=== PATIENT | male | born 1930 | race Caucasian/White ===

== ENCOUNTER 2016-12-15 04:58 | Inpatient (IN) | payer MEDICARE, OTHER ==
[~2016-12-15] VITALS: Ht 185.4 cm; Wt 96.1 kg
[~2016-12-15 04:58] MED LIST: ACET-66 PO; APIX2.5T PO; BISA5TAB12 PO; DILT60SR PO; DSS100 PO; FINA5TAB41 PO; FURO20 PO; INSNOV SQ; LEVO88TA4 PO; MOM30 PO; MONT10TA21 PO; PANT40TA25 PO; PIPE3.377 IV; PRED20 PO; SENN8.6T90 PO; TAMS0.4C32 PO; VALS160T2 PO; VANC1I IV; ZOLP5 PO
[2016-12-15 05:11] LABS: GLUCOSE,POINT OF CARE 124 MG/DL (70-110)
[2016-12-15] MEDS ORDERED: RAPID SEQUENCE KIT [RSI] 1 EACH KIT ONE ×2 (05:31)
[2016-12-15] MEDS ORDERED: SUCCINYLCHOLINE CHLORIDE 20 MG/ML 10 ML VIAL ONE (05:34)
[2016-12-15 05:58] LABS: EOSINOPHILS # (AUTO) 0.05 K/uL (0.00-0.70); EOSINOPHILS % (AUTO) 0.29 % (1.0-6.0); HEMATOCRIT 32.6 % (41-53); HEMOGLOBIN 10.5 g/dL (13.5-17.5); LYMPHOCYTES # (AUTO) 0.8 K/uL (1.0-4.8); LYMPHOCYTES % (AUTO) 5.3 % (22.0-44.0); MEAN CORPUSCULAR HEMOGLOBIN 31.7 pg (26.0-34.0); MEAN CORPUSCULAR HGB CONC 32.1 G/dL (31.0-37.0); MEAN CORPUSCULAR VOLUME 99 fL (80-100); MONOCYTES # (AUTO) 1.9 K/uL (0.1-1.0); NEUTROPHILS # (AUTO) 12.9 K/uL (1.8-7.7); NEUTROPHILS % (AUTO) 82.3 % (40.0-70.0); PLATELET COUNT (AUTO) 123 K/uL (150-450); RED CELL DISTRIBUTION WIDTH 13.8 % (11.5-14.5); WHITE BLOOD COUNT (AUTO) 15.6 K/uL (4.5-11.0)
[2016-12-15 06:11] LABS: INR 1.1 (0.9-1.1); PROTHROMBIN TIME 12.1 SEC (9.4-11.6)
[2016-12-15 06:14] LABS: ABG A-A DIFF O2 355.3 mmHg (10-20.0); ABG HCO3 34.7 mmol/L (22.0-26.0); ABG OXYHEMOGLOBIN 98.1 % (94.0-100.0); ABG PCO2 45 mmHg (35-45); ABG PH 7.512 (7.35-7.450); ALLEN TEST, BLOOD GAS POS; TEMPERATURE, FAHRENHEIT, BG 98.6 FAHREN (96.0-98.6)
[2016-12-15 06:14] LABS: ALANINE AMINOTRANSFERASE 21 U/L (12-78); ANION GAP -1 mmol/L (8-16); ASPARTATE AMINOTRANSFERASE 11 U/L (15-37); BILIRUBIN,TOTAL 0.3 mg/dL (0.1-1.0); CALCIUM, TOTAL 8.5 mg/dL (8.8-10.5); CHLORIDE 101 mmol/L (98-107); CREATINE KINASE, TOTAL 7 U/L (39-308); CREATININE 1.11 mg/dL (0.60-1.30); GLOMERULAR FILTR. RATE CALC > 60 mL/min (>60); SODIUM SERUM 143 mmol/L (136-145); TOTAL PROTEIN, SERUM 5.6 g/dL (6.4-8.2); UREA NITROGEN, BLOOD 18 mg/dL (7-18)
[2016-12-15] MEDS ORDERED: VECURONIUM BROMIDE 10 MG/VIAL IVP ONE ×2 (06:15→12:00)
[2016-12-15] MEDS ORDERED: PROPOFOL 1000 MG/ISO-OSM 100 ML IV PRN (06:15)
[2016-12-15] MEDS ORDERED: ETOMIDATE 2 MG/ML 10 ML VIAL IVP ONE ×2 (06:15→12:00)
[2016-12-15 06:17] LABS: CARBON DIOXIDE 43 mmol/L (22-29)
[2016-12-15 06:20] LABS: B-TYPE NATRIURETIC PEPTIDE 643 pg/mL (0-100)
[2016-12-15] MEDS ORDERED: ALBUMIN HUMAN 25%-25GM/100ML 100 ML IV ONE (06:45)
[2016-12-15] MEDS ORDERED: FUROSEMIDE 40 MG/4 ML VIAL IVP ONE (06:45)
[2016-12-15] MEDS ORDERED: POTASSIUM CHL 40 MEQ/D5-0.45NS 1,000 ML IV ONE (06:45)
[2016-12-15] MEDS ORDERED: ACETAMINOPHEN 325 MG TABLET PO PRN (06:45)
[2016-12-15] MEDS ORDERED: 0.9% SODIUM CHLORIDE 10 ML SYRINGE IVP PRN (06:45)
[2016-12-15 06:47] LABS: APPEARANCE,URINE CLOUDY (CLEAR); GLUCOSE, URINE (UA) NEGATIVE (NEGATIVE); KETONES,URINE NEGATIVE (NEGATIVE); LEUKOCYTE ESTERASE ,URINE NEGATIVE (NEGATIVE); OCCULT BLOOD,URINE MODERATE (NEGATIVE); PH,URINE 5.5 (5.0-8.0); PROTEIN,URINE SEE CONFIRM (NEGATIVE)
[2016-12-15 07:04] LABS: ADD UA MICROSCOPIC YES
[2016-12-15 07:06] LABS: SULFOSALICYLIC ACID,URINE 3+ (Negative)
[2016-12-15 07:07] LABS: WBC,URINE 0-2 /HPF (0-5)
[2016-12-15 07:09] LABS: SQUAMOUS EPITHELIAL CELL,UR Few /LPF (None Seen); URIC ACID CRYSTALS,URINE Few /LPF (None Seen)
[2016-12-15] MEDS ORDERED: HEPARIN SODIUM,PORCINE 100 UNITS/ML 5 ML VIAL IVP ONE (07:15)
[2016-12-15] MEDS ORDERED: BISACODYL 10 MG RECTAL RECTAL SUPPOSITORY PR PRN (09:15)
[2016-12-15] MEDS ORDERED: ACETAMINOPHEN 325 MG TABLET NG PRN (09:15)
[2016-12-15] MEDS ORDERED: MAGNESIUM HYDROXIDE SUSPENSION 30 ML UDCUP NG PRN (09:15)
[2016-12-15] MEDS: LEVOFLOXACIN 500 MG/D5% WATER 100 ML IV SCH (09:41)
[2016-12-15] MEDS ORDERED: VANCOMYCIN HCL 1 GM/D5% WATER 200 ML IV ONE (11:00)
[2016-12-15] MEDS: MethylPREDNISolone SOD SUCC 125 MG/2 ML VIAL IVP SCH ×2 (11:52→18:16)
[2016-12-15] MEDS ORDERED: POTASSIUM CHLORIDE 20 MEQ ER TABLET PO PRN (12:45)
[2016-12-15] MEDS ORDERED: HEPARIN SODIUM,PORCINE 5,000 UNITS/ML VIAL SQ SCH (16:00)
[2016-12-15] MEDS ORDERED: PROPOFOL 1000 MG/ISO-OSM 100 ML IV ONE (17:39)
[2016-12-15 20:00] VITALS: BP 145/78
[2016-12-15 20:39] LABS: CREATINE KINASE, TOTAL 8 U/L (39-308)
[2016-12-15] MEDS: POTASSIUM CHL 10 MEQ/WATER 50 ML IV PRN ×4 (20:52→22:48)
[2016-12-15] MEDS: APIXABAN 2.5 MG TABLET NG SCH (20:52)
[2016-12-15] MEDS: DOCUSATE SODIUM 100 MG CAPSULE NG SCH (20:52)
[2016-12-15] MEDS ORDERED: SODIUM CHLORIDE 0.9% 250 ML IV ONE (21:24)
[2016-12-16] VITALS: BP 153/70
[2016-12-16] MEDS: MethylPREDNISolone SOD SUCC 125 MG/2 ML VIAL IVP SCH ×4 (00:45→17:56)
[2016-12-16 04:00] VITALS: BP 116/53
[2016-12-16] MEDS: PROPOFOL 1000 MG/ISO-OSM 100 ML IV PRN ×4 (04:44→17:57)
[2016-12-16 04:46] LABS: CREATINE KINASE, TOTAL 16 U/L (39-308)
[2016-12-16 04:49] LABS: ALBUMIN 2.3 g/dL (3.4-5.0); BILIRUBIN,TOTAL 0.6 mg/dL (0.1-1.0); CALCIUM, TOTAL 8.6 mg/dL (8.8-10.5); CREATININE 1.18 mg/dL (0.60-1.30); EOSINOPHILS % (AUTO) 0 % (1.0-6.0); HEMATOCRIT 30.6 % (41-53); HEMOGLOBIN 9.7 g/dL (13.5-17.5); LYMPHOCYTES # (AUTO) 0.6 K/uL (1.0-4.8); LYMPHOCYTES % (AUTO) 5.7 % (22.0-44.0); MAGNESIUM 1.6 mg/dL (1.80-2.40); MEAN CORPUSCULAR HEMOGLOBIN 31.1 pg (26.0-34.0); MEAN CORPUSCULAR HGB CONC 31.8 G/dL (31.0-37.0); MEAN CORPUSCULAR VOLUME 98 fL (80-100); MONOCYTES # (AUTO) 0.6 K/uL (0.1-1.0); MONOCYTES % (AUTO) 5.7 % (2.0-9.0); NEUTROPHILS # (AUTO) 9.1 K/uL (1.8-7.7); PHOSPHORUS 1.8 mg/dL (2.5-4.9); PLATELET COUNT (AUTO) 118 K/uL (150-450); POTASSIUM 3.5 mmol/L (3.5-5.1); RED BLOOD CELL COUNT(AUTO) 3.13 MIL/uL (4.50-5.90); RED CELL DISTRIBUTION WIDTH 13.4 % (11.5-14.5); TOTAL PROTEIN, SERUM 5.7 g/dL (6.4-8.2); WHITE BLOOD COUNT (AUTO) 10.2 K/uL (4.5-11.0)
[2016-12-16 04:50] LABS: NEUTROPHILS % (AUTO) 88.6 % (40.0-70.0)
[2016-12-16] MEDS ORDERED: SODIUM CHLORIDE 0.9% 250 ML IV ONE ×2 (05:47→08:26)
[2016-12-16] MEDS: POTASSIUM CHL 10 MEQ/WATER 50 ML IV PRN ×6 (07:06→14:21)
[2016-12-16 07:46] LABS: ABG A-A DIFF O2 126.6 mmHg (10-20.0); ABG BASE EXCESS 11.4 mmol/L (-2.0-3.0); ABG HCO3 34.9 mmol/L (22.0-26.0); ABG OXYHEMOGLOBIN 97.6 % (94.0-100.0); ABG PCO2 28 mmHg (35-45)
[2016-12-16 07:48] LABS: ABG PH 7.678 (7.35-7.450); ALLEN TEST, BLOOD GAS Positive
[2016-12-16 08:00] VITALS: BP 91/45
[2016-12-16] MEDS: VANCOMYCIN HCL 1 GM/D5% WATER 200 ML IV SCH ×2 (08:34→17:56)
[2016-12-16] MEDS: APIXABAN 2.5 MG TABLET NG SCH ×2 (08:35→20:58)
[2016-12-16] MEDS: DOCUSATE SODIUM 100 MG CAPSULE NG SCH ×2 (08:35→20:58)
[2016-12-16] MEDS: PANTOPRAZOLE SODIUM 40 MG/VIAL IVP SCH (08:35)
[2016-12-16] MEDS: LEVOFLOXACIN 500 MG/D5% WATER 100 ML IV SCH (10:57)
[2016-12-16 11:51] LABS: CREATINE KINASE, TOTAL 11 U/L (39-308); POTASSIUM 3.1 mmol/L (3.5-5.1)
[2016-12-16 12:00] VITALS: BP 104/50
[2016-12-16 15:02] LABS: ABG A-A DIFF O2 71.2 mmHg (10-20.0); ABG BASE EXCESS 10.3 mmol/L (-2.0-3.0); ABG HCO3 33.7 mmol/L (22.0-26.0); ABG OXYHEMOGLOBIN 98.5 % (94.0-100.0); ABG PCO2 34 mmHg (35-45); TEMPERATURE, FAHRENHEIT, BG 98.6 FAHREN (96.0-98.6)
[2016-12-16 15:03] LABS: ABG PH 7.591 (7.35-7.450)
[2016-12-16 15:04] LABS: ALLEN TEST, BLOOD GAS Positive
[2016-12-16 16:00] VITALS: BP 133/54
[2016-12-16 20:00] VITALS: BP 86/48
[2016-12-17] VITALS (8 sets, daily range): BP systolic 108–147; BP diastolic 44–125
[2016-12-17] MEDS: MethylPREDNISolone SOD SUCC 125 MG/2 ML VIAL IVP SCH ×5 (00:53→23:58)
[2016-12-17] MEDS: PROPOFOL 1000 MG/ISO-OSM 100 ML IV PRN ×2 (02:21→08:00)
[2016-12-17] MEDS: VANCOMYCIN HCL 1 GM/D5% WATER 200 ML IV SCH ×2 (05:30→18:13)
[2016-12-17 05:39] LABS: ANION GAP 1 mmol/L (8-16); CALCIUM, TOTAL 8.4 mg/dL (8.8-10.5); CARBON DIOXIDE 35 mmol/L (22-29); CHLORIDE 100 mmol/L (98-107); CREATININE 1.03 mg/dL (0.60-1.30); GLOMERULAR FILTR. RATE CALC > 60 mL/min (>60); POTASSIUM 3.9 mmol/L (3.5-5.1); SODIUM SERUM 136 mmol/L (136-145); THYROID STIMULATING HORMONE 0.66 uIU/mL (0.36-3.74); UREA NITROGEN, BLOOD 28 mg/dL (7-18)
[2016-12-17 07:11] LABS: EOSINOPHILS % (AUTO) 0 % (1.0-6.0); HEMATOCRIT 27.4 % (41-53); HEMOGLOBIN 8.9 g/dL (13.5-17.5); LYMPHOCYTES # (AUTO) 0.5 K/uL (1.0-4.8); LYMPHOCYTES % (AUTO) 4.7 % (22.0-44.0); MEAN CORPUSCULAR HEMOGLOBIN 31.1 pg (26.0-34.0); MEAN CORPUSCULAR HGB CONC 32.4 G/dL (31.0-37.0); MEAN CORPUSCULAR VOLUME 96 fL (80-100); MONOCYTES # (AUTO) 0.5 K/uL (0.1-1.0); MONOCYTES % (AUTO) 4.5 % (2.0-9.0); NEUTROPHILS # (AUTO) 10.6 K/uL (1.8-7.7); PLATELET COUNT (AUTO) 118 K/uL (150-450); RED BLOOD CELL COUNT(AUTO) 2.85 MIL/uL (4.50-5.90); RED CELL DISTRIBUTION WIDTH 13.7 % (11.5-14.5); WHITE BLOOD COUNT (AUTO) 11.7 K/uL (4.5-11.0)
[2016-12-17 07:16] LABS: NEUTROPHILS % (AUTO) 90.8 % (40.0-70.0)
[2016-12-17] MEDS: PANTOPRAZOLE SODIUM 40 MG/VIAL IVP SCH (07:59)
[2016-12-17] MEDS: DOCUSATE SODIUM 100 MG CAPSULE NG SCH ×2 (08:00→20:48)
[2016-12-17] MEDS: APIXABAN 2.5 MG TABLET NG SCH ×2 (08:00→20:48)
[2016-12-17] MEDS: MULTIVITAMINS WITH MINERALS, THERAPEUTIC 15 ML UDCUP NG SCH (08:10)
[2016-12-17 09:00] LABS: ABG BASE EXCESS 8.8 mmol/L (-2.0-3.0); ABG HCO3 31.9 mmol/L (22.0-26.0); ABG OXYHEMOGLOBIN 97.4 % (94.0-100.0); ABG PCO2 41 mmHg (35-45); ABG PH 7.506 (7.35-7.450); TEMPERATURE, FAHRENHEIT, BG 98.6 FAHREN (96.0-98.6)
[2016-12-17 09:06] LABS: ALLEN TEST, BLOOD GAS Positive
[2016-12-17] MEDS ORDERED: SODIUM CHLORIDE 0.9% 250 ML IV ONE ×2 (09:47→20:45)
[2016-12-17] MEDS: LEVOFLOXACIN 500 MG/D5% WATER 100 ML IV SCH (09:47)
[2016-12-17] MEDS: MORPHINE SULFATE 2 MG/ML SYRINGE IVP PRN (14:10)
[2016-12-17] MEDS: LORazepam 2 MG/ML VIAL IVP PRN (20:50)
[2016-12-18] VITALS: BP 126/56
[2016-12-18 04:00] VITALS: BP 116/65
[2016-12-18] MEDS: VANCOMYCIN HCL 1 GM/D5% WATER 200 ML IV SCH (06:21)
[2016-12-18] MEDS: MethylPREDNISolone SOD SUCC 125 MG/2 ML VIAL IVP SCH ×3 (06:21→17:33)
[2016-12-18 06:44] LABS: EOSINOPHILS % (AUTO) 0 % (1.0-6.0); HEMATOCRIT 27.6 % (41-53); HEMOGLOBIN 8.8 g/dL (13.5-17.5); LYMPHOCYTES # (AUTO) 0.4 K/uL (1.0-4.8); LYMPHOCYTES % (AUTO) 3.9 % (22.0-44.0); MEAN CORPUSCULAR HEMOGLOBIN 30.8 pg (26.0-34.0); MEAN CORPUSCULAR HGB CONC 31.8 G/dL (31.0-37.0); MEAN CORPUSCULAR VOLUME 97 fL (80-100); MONOCYTES # (AUTO) 0.5 K/uL (0.1-1.0); MONOCYTES % (AUTO) 4.4 % (2.0-9.0); NEUTROPHILS # (AUTO) 10.1 K/uL (1.8-7.7); PLATELET COUNT (AUTO) 108 K/uL (150-450); RED BLOOD CELL COUNT(AUTO) 2.85 MIL/uL (4.50-5.90); RED CELL DISTRIBUTION WIDTH 13.5 % (11.5-14.5)
[2016-12-18 07:01] LABS: NEUTROPHILS % (AUTO) 91.7 % (40.0-70.0)
[2016-12-18 07:03] LABS: ANION GAP 3 mmol/L (8-16); CALCIUM, TOTAL 8.2 mg/dL (8.8-10.5); CARBON DIOXIDE 34 mmol/L (22-29); CHLORIDE 99 mmol/L (98-107); CREATININE 1.09 mg/dL (0.60-1.30); GLOMERULAR FILTR. RATE CALC > 60 mL/min (>60); POTASSIUM 4.1 mmol/L (3.5-5.1); SODIUM SERUM 136 mmol/L (136-145); UREA NITROGEN, BLOOD 33 mg/dL (7-18)
[2016-12-18 08:00] VITALS: BP 135/54
[2016-12-18] MEDS: MULTIVITAMINS WITH MINERALS, THERAPEUTIC 15 ML UDCUP NG SCH (09:00)
[2016-12-18 09:57] LABS: ABG A-A DIFF O2 70.4 mmHg (10-20.0); ABG BASE EXCESS 6.3 mmol/L (-2.0-3.0); ABG HCO3 29.9 mmol/L (22.0-26.0); ABG PCO2 39 mmHg (35-45); TEMPERATURE, FAHRENHEIT, BG 98.9 FAHREN (96.0-98.6)
[2016-12-18 09:58] LABS: ALLEN TEST, BLOOD GAS POSITIVE
[2016-12-18] MEDS: PANTOPRAZOLE SODIUM 40 MG/VIAL IVP SCH (09:59)
[2016-12-18] MEDS: LEVOFLOXACIN 500 MG/D5% WATER 100 ML IV SCH (10:00)
[2016-12-18] MEDS: APIXABAN 2.5 MG TABLET NG SCH ×2 (10:00→21:27)
[2016-12-18] MEDS: LORazepam 2 MG/ML VIAL IVP PRN (10:00)
[2016-12-18] MEDS: DOCUSATE SODIUM 100 MG CAPSULE NG SCH ×2 (10:00→21:27)
[2016-12-18 12:00] VITALS: BP 132/49
[2016-12-18] MEDS ORDERED: VANCOMYCIN HCL 1 GM/D5% WATER 200 ML IV PRN (12:30)
[2016-12-18 16:00] VITALS: BP 150/71
[2016-12-18 20:00] VITALS: BP 108/47
[2016-12-19] VITALS (8 sets, daily range): BP systolic 111–159; BP diastolic 45–70
[2016-12-19] MEDS: MethylPREDNISolone SOD SUCC 125 MG/2 ML VIAL IVP SCH ×4 (00:06→17:41)
[2016-12-19] MEDS: LORazepam 2 MG/ML VIAL IVP PRN ×2 (01:54→20:55)
[2016-12-19] MEDS ORDERED: SODIUM CHLORIDE 0.9% 250 ML IV ONE ×2 (04:23→13:37)
[2016-12-19 06:37] LABS: ANION GAP 4 mmol/L (8-16); CALCIUM, TOTAL 8.1 mg/dL (8.8-10.5); CARBON DIOXIDE 32 mmol/L (22-29); CHLORIDE 100 mmol/L (98-107); CREATININE 0.95 mg/dL (0.60-1.30); GLOMERULAR FILTR. RATE CALC > 60 mL/min (>60); SODIUM SERUM 136 mmol/L (136-145); UREA NITROGEN, BLOOD 35 mg/dL (7-18)
[2016-12-19] MEDS: MULTIVITAMINS WITH MINERALS, THERAPEUTIC 15 ML UDCUP NG SCH (09:00)
[2016-12-19] MEDS: PANTOPRAZOLE SODIUM 40 MG/VIAL IVP SCH (10:25)
[2016-12-19] MEDS: LEVOFLOXACIN 500 MG/D5% WATER 100 ML IV SCH (10:25)
[2016-12-19] MEDS: APIXABAN 2.5 MG TABLET NG SCH ×2 (10:26→20:55)
[2016-12-19] MEDS: DOCUSATE SODIUM 100 MG CAPSULE NG SCH ×2 (10:26→20:55)
[2016-12-19 13:01] LABS: ABG A-A DIFF O2 85.5 mmHg (10-20.0); ABG HCO3 29.4 mmol/L (22.0-26.0); ABG OXYHEMOGLOBIN 97.5 % (94.0-100.0); ABG PCO2 43 mmHg (35-45); ABG PH 7.458 (7.35-7.450); TEMPERATURE, FAHRENHEIT, BG 98.6 FAHREN (96.0-98.6)
[2016-12-19 13:02] LABS: ALLEN TEST, BLOOD GAS Positive
[2016-12-19] MEDS: MORPHINE SULFATE 2 MG/ML SYRINGE IVP PRN (14:37)
[2016-12-20] VITALS: BP 129/57
[2016-12-20] MEDS: MethylPREDNISolone SOD SUCC 125 MG/2 ML VIAL IVP SCH ×3 (00:19→10:53)
[2016-12-20 04:00] VITALS: BP 110/57
[2016-12-20 05:09] LABS: EOSINOPHILS % (AUTO) 0 % (1.0-6.0); HEMATOCRIT 28.9 % (41-53); HEMOGLOBIN 9.4 g/dL (13.5-17.5); LYMPHOCYTES # (AUTO) 0.5 K/uL (1.0-4.8); LYMPHOCYTES % (AUTO) 4.6 % (22.0-44.0); MEAN CORPUSCULAR HEMOGLOBIN 31.1 pg (26.0-34.0); MEAN CORPUSCULAR HGB CONC 32.5 G/dL (31.0-37.0); MEAN CORPUSCULAR VOLUME 96 fL (80-100); MONOCYTES # (AUTO) 0.4 K/uL (0.1-1.0); MONOCYTES % (AUTO) 3.6 % (2.0-9.0); NEUTROPHILS # (AUTO) 9.4 K/uL (1.8-7.7); PLATELET COUNT (AUTO) 98 K/uL (150-450); RED BLOOD CELL COUNT(AUTO) 3.02 MIL/uL (4.50-5.90); RED CELL DISTRIBUTION WIDTH 13.8 % (11.5-14.5); WHITE BLOOD COUNT (AUTO) 10.2 K/uL (4.5-11.0)
[2016-12-20 05:12] LABS: NEUTROPHILS % (AUTO) 91.8 % (40.0-70.0)
[2016-12-20 05:21] LABS: ANION GAP 4 mmol/L (8-16); CALCIUM, TOTAL 8.1 mg/dL (8.8-10.5); CARBON DIOXIDE 32 mmol/L (22-29); CHLORIDE 101 mmol/L (98-107); CREATININE 0.93 mg/dL (0.60-1.30); GLOMERULAR FILTR. RATE CALC > 60 mL/min (>60); POTASSIUM 4.4 mmol/L (3.5-5.1); SODIUM SERUM 137 mmol/L (136-145); UREA NITROGEN, BLOOD 38 mg/dL (7-18)
[2016-12-20 08:00] VITALS: BP 132/60
[2016-12-20 08:21] LABS: PHOSPHORUS 2.4 mg/dL (2.5-4.9)
[2016-12-20] MEDS: DOCUSATE SODIUM 100 MG CAPSULE NG SCH ×2 (08:31→21:00)
[2016-12-20] MEDS: MULTIVITAMINS WITH MINERALS, THERAPEUTIC 15 ML UDCUP NG SCH (08:31)
[2016-12-20] MEDS: APIXABAN 2.5 MG TABLET NG SCH ×2 (08:31→21:00)
[2016-12-20] MEDS: PANTOPRAZOLE SODIUM 40 MG/VIAL IVP SCH (08:32)
[2016-12-20] MEDS: LEVOFLOXACIN 500 MG/D5% WATER 100 ML IV SCH (09:06)
[2016-12-20] MEDS ORDERED: VANCOMYCIN HCL 1 GM/D5% WATER 200 ML IV ONE (09:15)
[2016-12-20] MEDS ORDERED: FUROSEMIDE 20 MG/2 ML VIAL IVP ONE (10:15)
[2016-12-20] MEDS ORDERED: SODIUM PHOS,M-BASIC-D-BASIC 30 MMOL in DEXTROSE 5%-WATER 250 ML IV ONE (10:40)
[2016-12-20] MEDS: MethylPREDNISolone SOD SUCC 40 MG/ML VIAL IVP SCH ×2 (11:57→17:50)
[2016-12-20 12:00] VITALS: BP 142/62
[2016-12-20 12:26] LABS: ABG A-A DIFF O2 87.1 mmHg (10-20.0); ABG BASE EXCESS 8.7 mmol/L (-2.0-3.0); ABG HCO3 31.6 mmol/L (22.0-26.0); ABG OXYHEMOGLOBIN 97.3 % (94.0-100.0); ABG PCO2 46 mmHg (35-45); ABG PH 7.465 (7.35-7.450); TEMPERATURE, FAHRENHEIT, BG 98.6 FAHREN (96.0-98.6)
[2016-12-20 12:27] LABS: ALLEN TEST, BLOOD GAS Positive
[2016-12-20 14:06] LABS: ABG A-A DIFF O2 92.8 mmHg (10-20.0); ABG BASE EXCESS 6.9 mmol/L (-2.0-3.0); ABG HCO3 30.1 mmol/L (22.0-26.0); ABG OXYHEMOGLOBIN 96.1 % (94.0-100.0); ABG PCO2 43 mmHg (35-45)
[2016-12-20 14:07] LABS: ALLEN TEST, BLOOD GAS Positive
[2016-12-20 16:00] VITALS: BP 142/60
[2016-12-20 20:00] VITALS: BP 148/58
[2016-12-20] MEDS ORDERED: SODIUM CHLORIDE 0.9% 250 ML IV ONE (21:32)
[2016-12-20] MEDS: LORazepam 2 MG/ML VIAL IVP PRN (21:32)
[2016-12-21] VITALS (8 sets, daily range): BP systolic 126–148; BP diastolic 56–76
[2016-12-21] MEDS: MethylPREDNISolone SOD SUCC 40 MG/ML VIAL IVP SCH ×4 (00:09→17:21)
[2016-12-21 05:53] LABS: ANION GAP 4 mmol/L (8-16); CALCIUM, TOTAL 8.5 mg/dL (8.8-10.5); CARBON DIOXIDE 32 mmol/L (22-29); CHLORIDE 99 mmol/L (98-107); CREATININE 0.85 mg/dL (0.60-1.30); GLOMERULAR FILTR. RATE CALC > 60 mL/min (>60); POTASSIUM 4.9 mmol/L (3.5-5.1); SODIUM SERUM 135 mmol/L (136-145); UREA NITROGEN, BLOOD 37 mg/dL (7-18)
[2016-12-21] MEDS: PANTOPRAZOLE SODIUM 40 MG/VIAL IVP SCH (08:13)
[2016-12-21] MEDS: VANCOMYCIN HCL 1 GM/D5% WATER 200 ML IV SCH (08:13)
[2016-12-21] MEDS: MULTIVITAMINS WITH MINERALS, THERAPEUTIC 15 ML UDCUP NG SCH (08:13)
[2016-12-21] MEDS: DOCUSATE SODIUM 100 MG CAPSULE NG SCH ×2 (08:13→20:20)
[2016-12-21] MEDS: APIXABAN 2.5 MG TABLET NG SCH ×2 (08:13→20:20)
[2016-12-21] MEDS: LEVOFLOXACIN 500 MG/D5% WATER 100 ML IV SCH (10:36)
[2016-12-21] MEDS ORDERED: SODIUM CHLORIDE 0.9% 250 ML IV ONE (17:13)
[2016-12-21] MEDS ORDERED: PredniSONE 20 MG TABLET PO SCH (18:45)
[2016-12-22 03:58] VITALS: BP 147/66
[2016-12-22 07:12] VITALS: BP 118/44
[2016-12-22] MEDS: PredniSONE 20 MG TABLET PO SCH (08:09)
[2016-12-22] MEDS: APIXABAN 2.5 MG TABLET NG SCH ×2 (08:09→20:05)
[2016-12-22] MEDS: MULTIVITAMINS WITH MINERALS, THERAPEUTIC 15 ML UDCUP NG SCH (08:10)
[2016-12-22] MEDS: DOCUSATE SODIUM 100 MG CAPSULE NG SCH ×2 (08:10→20:05)
[2016-12-22] MEDS: PANTOPRAZOLE SODIUM 40 MG/VIAL IVP SCH (08:10)
[2016-12-22] MEDS: VANCOMYCIN HCL 1 GM/D5% WATER 200 ML IV SCH (09:31)
[2016-12-22] MEDS: LEVOFLOXACIN 500 MG/D5% WATER 100 ML IV SCH (10:14)
[2016-12-22 11:40] LABS: ANION GAP 2 mmol/L (8-16); CALCIUM, TOTAL 8.2 mg/dL (8.8-10.5); CARBON DIOXIDE 32 mmol/L (22-29); CHLORIDE 99 mmol/L (98-107); CREATININE 0.87 mg/dL (0.60-1.30); GLOMERULAR FILTR. RATE CALC > 60 mL/min (>60); POTASSIUM 4.4 mmol/L (3.5-5.1); SODIUM SERUM 133 mmol/L (136-145); UREA NITROGEN, BLOOD 36 mg/dL (7-18)
[2016-12-22 12:34] VITALS: BP 139/54
[2016-12-22 16:01] VITALS: BP 149/70
[2016-12-22 16:21] LABS: EOSINOPHILS % (AUTO) 0 % (1.0-6.0); HEMATOCRIT 31.6 % (41-53); HEMOGLOBIN 10.2 g/dL (13.5-17.5); LYMPHOCYTES # (AUTO) 0.5 K/uL (1.0-4.8); LYMPHOCYTES % (AUTO) 3.9 % (22.0-44.0); MEAN CORPUSCULAR HEMOGLOBIN 30.9 pg (26.0-34.0); MEAN CORPUSCULAR HGB CONC 32.2 G/dL (31.0-37.0); MEAN CORPUSCULAR VOLUME 96 fL (80-100); MONOCYTES # (AUTO) 0.5 K/uL (0.1-1.0); MONOCYTES % (AUTO) 4.5 % (2.0-9.0); NEUTROPHILS # (AUTO) 11.1 K/uL (1.8-7.7); PLATELET COUNT (AUTO) 132 K/uL (150-450); RED CELL DISTRIBUTION WIDTH 13.6 % (11.5-14.5); WHITE BLOOD COUNT (AUTO) 12.1 K/uL (4.5-11.0)
[2016-12-22 16:22] LABS: NEUTROPHILS % (AUTO) 91.6 % (40.0-70.0)
[2016-12-22 16:33] LABS: ANION GAP 1 mmol/L (8-16); CALCIUM, TOTAL 8.1 mg/dL (8.8-10.5); CARBON DIOXIDE 32 mmol/L (22-29); CHLORIDE 98 mmol/L (98-107); CREATININE 0.85 mg/dL (0.60-1.30); GLOMERULAR FILTR. RATE CALC > 60 mL/min (>60); POTASSIUM 4.9 mmol/L (3.5-5.1); SODIUM SERUM 131 mmol/L (136-145); UREA NITROGEN, BLOOD 35 mg/dL (7-18)
[2016-12-22 16:39] LABS: ALANINE AMINOTRANSFERASE 154 U/L (12-78); ALBUMIN 2.2 g/dL (3.4-5.0); ASPARTATE AMINOTRANSFERASE 43 U/L (15-37); BILIRUBIN,TOTAL 0.7 mg/dL (0.1-1.0)
[2016-12-22 19:58] VITALS: BP 107/63
[2016-12-22 23:47] VITALS: BP 132/71
[2016-12-23] MEDS: LORazepam 2 MG/ML VIAL IVP PRN (00:46)
[2016-12-23 04:27] VITALS: BP 125/64
[2016-12-23 07:07] VITALS: BP 128/54
[2016-12-23 07:56] LABS: ANION GAP 6 mmol/L (8-16); CARBON DIOXIDE 28 mmol/L (22-29); CHLORIDE 98 mmol/L (98-107); CREATININE 0.87 mg/dL (0.60-1.30); GLOMERULAR FILTR. RATE CALC > 60 mL/min (>60); POTASSIUM 4.7 mmol/L (3.5-5.1); SODIUM SERUM 132 mmol/L (136-145); UREA NITROGEN, BLOOD 36 mg/dL (7-18)
[2016-12-23] MEDS: DOCUSATE SODIUM 100 MG CAPSULE NG SCH ×2 (08:36→21:00)
[2016-12-23] MEDS: PredniSONE 20 MG TABLET PO SCH (08:37)
[2016-12-23] MEDS: APIXABAN 2.5 MG TABLET NG SCH ×2 (08:37→21:19)
[2016-12-23] MEDS: MULTIVITAMINS WITH MINERALS, THERAPEUTIC 15 ML UDCUP NG SCH (08:37)
[2016-12-23] MEDS: PANTOPRAZOLE SODIUM 40 MG/VIAL IVP SCH (09:10)
[2016-12-23] MEDS: VANCOMYCIN HCL 1 GM/D5% WATER 200 ML IV SCH (09:10)
[2016-12-23] MEDS: LEVOFLOXACIN 500 MG/D5% WATER 100 ML IV SCH (10:52)
[2016-12-23 10:59] VITALS: BP 129/61
[2016-12-23 15:19] VITALS: BP 130/62
[2016-12-23 19:16] VITALS: BP 121/60
[2016-12-24] VITALS (7 sets, daily range): BP systolic 121–149; BP diastolic 55–74
[2016-12-24] MEDS: PredniSONE 20 MG TABLET PO SCH (07:42)
[2016-12-24] MEDS: APIXABAN 2.5 MG TABLET NG SCH ×2 (07:42→21:48)
[2016-12-24] MEDS: MULTIVITAMINS WITH MINERALS, THERAPEUTIC 15 ML UDCUP NG SCH (07:42)
[2016-12-24] MEDS: DOCUSATE SODIUM 100 MG CAPSULE NG SCH ×2 (07:43→21:49)
[2016-12-24 07:47] LABS: ANION GAP 6 mmol/L (8-16); CARBON DIOXIDE 28 mmol/L (22-29); CHLORIDE 101 mmol/L (98-107); CREATININE 0.79 mg/dL (0.60-1.30); GLOMERULAR FILTR. RATE CALC > 60 mL/min (>60); POTASSIUM 4.9 mmol/L (3.5-5.1); SODIUM SERUM 135 mmol/L (136-145); UREA NITROGEN, BLOOD 31 mg/dL (7-18)
[2016-12-24] MEDS: LEVOFLOXACIN 500 MG/D5% WATER 100 ML IV SCH (08:12)
[2016-12-24] MEDS: PANTOPRAZOLE SODIUM 40 MG/VIAL IVP SCH (08:12)
[2016-12-24] MEDS: VANCOMYCIN HCL 1 GM/D5% WATER 200 ML IV SCH (08:15)
[2016-12-24 17:52] LABS: BASOPHILS % (AUTO) 0.4 % (0.0-2.0); EOSINOPHILS % (AUTO) 0.2 % (1.0-6.0); HEMATOCRIT 31.5 % (41-53); HEMOGLOBIN 10.1 g/dL (13.5-17.5); LYMPHOCYTES # (AUTO) 0.5 K/uL (1.0-4.8); LYMPHOCYTES % (AUTO) 5.9 % (22.0-44.0); MEAN CORPUSCULAR HEMOGLOBIN 30.5 pg (26.0-34.0); MEAN CORPUSCULAR VOLUME 95 fL (80-100); MONOCYTES # (AUTO) 0.8 K/uL (0.1-1.0); MONOCYTES % (AUTO) 8.5 % (2.0-9.0); NEUTROPHILS # (AUTO) 7.8 K/uL (1.8-7.7); PLATELET COUNT (AUTO) 179 K/uL (150-450); RED BLOOD CELL COUNT(AUTO) 3.31 MIL/uL (4.50-5.90); RED CELL DISTRIBUTION WIDTH 13.9 % (11.5-14.5); WHITE BLOOD COUNT (AUTO) 9.2 K/uL (4.5-11.0)
[2016-12-24 18:12] LABS: ALANINE AMINOTRANSFERASE 81 U/L (12-78); ALBUMIN 2.1 g/dL (3.4-5.0); ANION GAP -5 mmol/L (8-16); ASPARTATE AMINOTRANSFERASE 18 U/L (15-37); BILIRUBIN,TOTAL 0.5 mg/dL (0.1-1.0); CALCIUM, TOTAL 7.9 mg/dL (8.8-10.5); CARBON DIOXIDE 30 mmol/L (22-29); CHLORIDE 96 mmol/L (98-107); CREATININE 0.81 mg/dL (0.60-1.30); GLOMERULAR FILTR. RATE CALC > 60 mL/min (>60); POTASSIUM 4.2 mmol/L (3.5-5.1); TOTAL PROTEIN, SERUM 4.8 g/dL (6.4-8.2); UREA NITROGEN, BLOOD 34 mg/dL (7-18)
[2016-12-24 18:19] LABS: SODIUM SERUM 121 mmol/L (136-145)
[2016-12-25] MEDS: LORazepam 2 MG/ML VIAL IVP PRN (01:43)
[2016-12-25 04:25] VITALS: BP 147/65
[2016-12-25 07:27] LABS: BASOPHILS % (AUTO) 0.2 % (0.0-2.0); EOSINOPHILS % (AUTO) 1.6 % (1.0-6.0); HEMATOCRIT 29.4 % (41-53); HEMOGLOBIN 9.3 g/dL (13.5-17.5); LYMPHOCYTES # (AUTO) 0.7 K/uL (1.0-4.8); LYMPHOCYTES % (AUTO) 9.2 % (22.0-44.0); MEAN CORPUSCULAR HEMOGLOBIN 30.7 pg (26.0-34.0); MEAN CORPUSCULAR HGB CONC 31.6 G/dL (31.0-37.0); MEAN CORPUSCULAR VOLUME 97 fL (80-100); MONOCYTES % (AUTO) 12.1 % (2.0-9.0); NEUTROPHILS # (AUTO) 6.2 K/uL (1.8-7.7); NEUTROPHILS % (AUTO) 76.9 % (40.0-70.0); PLATELET COUNT (AUTO) 193 K/uL (150-450); RED BLOOD CELL COUNT(AUTO) 3.03 MIL/uL (4.50-5.90); RED CELL DISTRIBUTION WIDTH 13.9 % (11.5-14.5)
[2016-12-25 07:43] VITALS: BP 138/68
[2016-12-25 07:46] LABS: ALANINE AMINOTRANSFERASE 68 U/L (12-78); ANION GAP 3 mmol/L (8-16); ASPARTATE AMINOTRANSFERASE 15 U/L (15-37); BILIRUBIN,TOTAL 0.6 mg/dL (0.1-1.0); CALCIUM, TOTAL 7.9 mg/dL (8.8-10.5); CARBON DIOXIDE 32 mmol/L (22-29); CHLORIDE 102 mmol/L (98-107); CREATININE 0.86 mg/dL (0.60-1.30); GLOMERULAR FILTR. RATE CALC > 60 mL/min (>60); POTASSIUM 3.9 mmol/L (3.5-5.1); SODIUM SERUM 137 mmol/L (136-145); TOTAL PROTEIN, SERUM 4.5 g/dL (6.4-8.2); UREA NITROGEN, BLOOD 27 mg/dL (7-18)
[2016-12-25] MEDS ORDERED: SODIUM CHLORIDE 0.9% 250 ML IV ONE (08:11)
[2016-12-25] MEDS: MULTIVITAMINS WITH MINERALS, THERAPEUTIC 15 ML UDCUP NG SCH (08:15)
[2016-12-25] MEDS: PredniSONE 20 MG TABLET PO SCH (08:15)
[2016-12-25] MEDS: APIXABAN 2.5 MG TABLET NG SCH ×2 (08:15→20:06)
[2016-12-25] MEDS: DOCUSATE SODIUM 100 MG CAPSULE NG SCH ×2 (08:15→20:04)
[2016-12-25] MEDS: VANCOMYCIN HCL 1 GM/D5% WATER 200 ML IV SCH (09:00)
[2016-12-25] MEDS: PANTOPRAZOLE SODIUM 40 MG/VIAL IVP SCH (09:00)
[2016-12-25] MEDS: LEVOFLOXACIN 500 MG/D5% WATER 100 ML IV SCH (10:29)
[2016-12-25 11:08] VITALS: BP 150/71
[2016-12-25 16:14] VITALS: BP 130/61
[2016-12-25 19:09] VITALS: BP 150/71
[2016-12-25 23:24] VITALS: BP 141/69
[2016-12-26 05:06] VITALS: BP 150/67
[2016-12-26 07:04] LABS: BASOPHILS % (AUTO) 0.3 % (0.0-2.0); EOSINOPHILS % (AUTO) 1.2 % (1.0-6.0); HEMATOCRIT 29.2 % (41-53); HEMOGLOBIN 9.3 g/dL (13.5-17.5); LYMPHOCYTES # (AUTO) 0.7 K/uL (1.0-4.8); LYMPHOCYTES % (AUTO) 9.3 % (22.0-44.0); MEAN CORPUSCULAR HEMOGLOBIN 30.9 pg (26.0-34.0); MEAN CORPUSCULAR HGB CONC 31.8 G/dL (31.0-37.0); MEAN CORPUSCULAR VOLUME 97 fL (80-100); MONOCYTES % (AUTO) 13.7 % (2.0-9.0); NEUTROPHILS # (AUTO) 5.6 K/uL (1.8-7.7); NEUTROPHILS % (AUTO) 75.5 % (40.0-70.0); PLATELET COUNT (AUTO) 207 K/uL (150-450); RED CELL DISTRIBUTION WIDTH 14.4 % (11.5-14.5); WHITE BLOOD COUNT (AUTO) 7.5 K/uL (4.5-11.0)
[2016-12-26 07:12] VITALS: BP 132/58
[2016-12-26 07:29] LABS: ALANINE AMINOTRANSFERASE 55 U/L (12-78); ANION GAP 3 mmol/L (8-16); ASPARTATE AMINOTRANSFERASE 14 U/L (15-37); BILIRUBIN,TOTAL 0.5 mg/dL (0.1-1.0); CALCIUM, TOTAL 7.8 mg/dL (8.8-10.5); CARBON DIOXIDE 32 mmol/L (22-29); CHLORIDE 100 mmol/L (98-107); CREATININE 0.84 mg/dL (0.60-1.30); GLOMERULAR FILTR. RATE CALC > 60 mL/min (>60); POTASSIUM 3.5 mmol/L (3.5-5.1); SODIUM SERUM 135 mmol/L (136-145); TOTAL PROTEIN, SERUM 4.4 g/dL (6.4-8.2); UREA NITROGEN, BLOOD 25 mg/dL (7-18)
[2016-12-26] MEDS: VANCOMYCIN HCL 1 GM/D5% WATER 200 ML IV SCH (08:44)
[2016-12-26] MEDS: PANTOPRAZOLE SODIUM 40 MG/VIAL IVP SCH (08:45)
[2016-12-26] MEDS: MULTIVITAMINS WITH MINERALS, THERAPEUTIC 15 ML UDCUP NG SCH (08:46)
[2016-12-26] MEDS: DOCUSATE SODIUM 100 MG CAPSULE NG SCH (08:47)
[2016-12-26] MEDS: PredniSONE 20 MG TABLET PO SCH (08:47)
[2016-12-26] MEDS: APIXABAN 2.5 MG TABLET NG SCH (08:47)
[2016-12-26 11:18] VITALS: BP 100/35
[2016-12-26] MEDS: LEVOFLOXACIN 500 MG/D5% WATER 100 ML IV SCH (11:50)
[2016-12-26 15:00] VITALS: BP 110/59
[2016-12-27] MEDS ORDERED: PredniSONE 10 MG TABLET PO SCH (09:00)
== END 2016-12-26 16:45 | DRG 870 ==
LOC: EMS 05:01 → ICU 15:20 → 5S 12-21 12:52
PROVIDERS: ADMIT Internal Medicine; ATTEND Internal Medicine
PROC: 5A1955Z Respiratory Ventilation, Greater than 96 Consecutive Hours (ICD-10-PCS; principal; 2016-12-15)
PROC: 5A09357 Assistance with Respiratory Ventilation, Less than 24 Consecutive Hours, Continuous Positive Airway Pressure (ICD-10-PCS; 2016-12-15)
PROC: 0BH18EZ Insertion of Endotracheal Airway into Trachea, Via Natural or Artificial Opening Endoscopic (ICD-10-PCS; 2016-12-15)
PROC: 0DH68UZ Insertion of Feeding Device into Stomach, Via Natural or Artificial Opening Endoscopic (ICD-10-PCS; 2016-12-15)
DX: A41.9 Sepsis, unspecified organism (principal); G93.40 Encephalopathy, unspecified; E43 Unspecified severe protein-calorie malnutrition; J96.21 Acute and chronic respiratory failure with hypoxia; J96.22 Acute and chronic respiratory failure with hypercapnia; J69.0 Pneumonitis due to inhalation of food and vomit; J44.1 Chronic obstructive pulmonary disease with (acute) exacerbation; E87.1 Hypo-osmolality and hyponatremia; G91.9 Hydrocephalus, unspecified; E78.00 Pure hypercholesterolemia, unspecified; E78.5 Hyperlipidemia, unspecified; D63.8 Anemia in other chronic diseases classified elsewhere; E03.9 Hypothyroidism, unspecified; I48.0 Paroxysmal atrial fibrillation; N40.0 Benign prostatic hyperplasia without lower urinary tract symptoms; R62.7 Adult failure to thrive; R53.81 Other malaise; M19.90 Unspecified osteoarthritis, unspecified site; S31.819A Unspecified open wound of right buttock, initial encounter; B95.8 Unspecified staphylococcus as the cause of diseases classified elsewhere; I50.9 Heart failure, unspecified; I11.0 Hypertensive heart disease with heart failure; Z88.5 Allergy status to narcotic agent; Z79.899 Other long term (current) drug therapy; Z79.2 Long term (current) use of antibiotics; Z79.01 Long term (current) use of anticoagulants; Z90.49 Acquired absence of other specified parts of digestive tract; Z96.651 Presence of right artificial knee joint; Z87.440 Personal history of urinary (tract) infections; Z86.69 Personal history of other diseases of the nervous system and sense organs; Z87.19 Personal history of other diseases of the digestive system; X58.XXXA Exposure to other specified factors, initial encounter; Y93.89 Activity, other specified; Y92.128 Other place in nursing home as the place of occurrence of the external cause; Y99.8 Other external cause status
CPT/HCPCS: 31500; 70450; 82805; 82962; 83735; 84100; 84132; 84443; 87040; 87081; 92526; 92610; 93005; 94002; 94003; 96365; 96366; 96367; 96375; 97163; 99291; C9113; J0330; J1642; J1940; J1956; J2060; J2270; J2704; J2920; J2930; J3370; J3480; J3490; J7050; J7060; P9046

== ENCOUNTER → 2017-01-22 | Outpatient (CLI) | payer MEDICARE, OTHER ==
[~2017-01-22] MED LIST changes: +ACET-2902 PO; +APIX5TAB PO; +IOHEXOL 180 MG/ML 20 ML VIAL ONE; +LEVO500 PO; +LIDOCAINE HCL/PF 1% 30 ML VIAL ONE; +MUPI15CR NASAL; +MUPI1OIN5 NASAL; +VALS40TA4 PO
[2017-01-22 13:45] LABS: APPEARANCE,CSF CLEAR (CLEAR); COLOR,CSF COLORLESS (COLORLESS)
[2017-01-22 14:43] LABS: GLUCOSE, CSF 63 mg/dL (50-80); TOTAL PROTEIN, CSF 36 mg/dL (15-45)
== END | disposition home or self-care (01) ==
LOC: RADMN 09:19
PROVIDERS: ATTEND Legal Medicine
DX: G91.8 Other hydrocephalus (principal)
CPT/HCPCS: 36415; 62270; 82945; 84157; 86592; 87070; 87205; 89051; J3490; Q9965

== ENCOUNTER 2017-02-12 19:20 | Inpatient (IN) | payer MEDICARE, OTHER ==
[~2017-02-12] VITALS: Ht 172.7 cm; Wt 88.3 kg
[~2017-02-12 19:20] MED LIST changes: -ACET-2902 PO; -APIX5TAB PO; -IOHEXOL 180 MG/ML 20 ML VIAL ONE; -LEVO500 PO; -LIDOCAINE HCL/PF 1% 30 ML VIAL ONE; -MUPI15CR NASAL; -MUPI1OIN5 NASAL; -VALS40TA4 PO
[2017-02-12 20:28] LABS: BASOPHILS % (AUTO) 0.1 % (0.0-2.0); EOSINOPHILS % (AUTO) 0.3 % (1.0-6.0); HEMATOCRIT 35.4 % (41-53); HEMOGLOBIN 11.1 g/dL (13.5-17.5); LYMPHOCYTES # (AUTO) 1.4 K/uL (1.0-4.8); LYMPHOCYTES % (AUTO) 13.4 % (22.0-44.0); MEAN CORPUSCULAR HEMOGLOBIN 29.3 pg (26.0-34.0); MEAN CORPUSCULAR HGB CONC 31.4 G/dL (31.0-37.0); MEAN CORPUSCULAR VOLUME 93 fL (80-100); MONOCYTES # (AUTO) 0.8 K/uL (0.1-1.0); MONOCYTES % (AUTO) 7.7 % (2.0-9.0); NEUTROPHILS # (AUTO) 8.5 K/uL (1.8-7.7); NEUTROPHILS % (AUTO) 78.5 % (40.0-70.0); PLATELET COUNT (AUTO) 173 K/uL (150-450); RED CELL DISTRIBUTION WIDTH 13.6 % (11.5-14.5); WHITE BLOOD COUNT (AUTO) 10.8 K/uL (4.5-11.0)
[2017-02-12] MEDS ORDERED: ALBUTEROL SULFATE 5 MG/ML 20 ML NEB SOLN [BULK] NEB ONE (20:30)
[2017-02-12] MEDS ORDERED: IPRATROPIUM BROMIDE 0.5 MG/2.5 ML NEB SOLUTION NEB ONE (20:30)
[2017-02-12 20:45] LABS: ANION GAP 4 mmol/L (8-16); CALCIUM, TOTAL 9.2 mg/dL (8.8-10.5); CARBON DIOXIDE 32 mmol/L (22-29); CHLORIDE 107 mmol/L (98-107); CREATININE 0.82 mg/dL (0.60-1.30); GLOMERULAR FILTR. RATE CALC > 60 mL/min (>60); POTASSIUM 4.3 mmol/L (3.5-5.1); SODIUM SERUM 143 mmol/L (136-145); UREA NITROGEN, BLOOD 25 mg/dL (7-18)
[2017-02-12 20:48] LABS: ALANINE AMINOTRANSFERASE 11 U/L (12-78); ALBUMIN 2.3 g/dL (3.4-5.0); ASPARTATE AMINOTRANSFERASE 17 U/L (15-37); BILIRUBIN,TOTAL 0.2 mg/dL (0.1-1.0); TOTAL PROTEIN, SERUM 6.3 g/dL (6.4-8.2)
[2017-02-12 21:00] LABS: B-TYPE NATRIURETIC PEPTIDE 84 pg/mL (0-100)
[2017-02-12 21:05] LABS: ABG A-A DIFF O2 108.7 mmHg (10-20.0); ABG HCO3 30.1 mmol/L (22.0-26.0); ABG OXYHEMOGLOBIN 91.3 % (94.0-100.0); ABG PCO2 66 mmHg (35-45); ABG PH 7.331 (7.35-7.450); TEMPERATURE, FAHRENHEIT, BG 99.1 FAHREN (96.0-98.6)
[2017-02-12 21:06] LABS: ALLEN TEST, BLOOD GAS POSITIVE
[2017-02-12] MEDS ORDERED: MethylPREDNISolone SOD SUCC 125 MG/2 ML VIAL IVP ONE (22:00)
[2017-02-12] MEDS ORDERED: CefTRIAXone 1 GM/DEXTROSE 50 ML IV ONE (22:15)
[2017-02-12] MEDS ORDERED: AZITHROMYCIN 500 MG/NS 250 ML IV ONE (22:15)
[2017-02-12] MEDS: ALBUTEROL SULFATE 2.5 MG/0.5 ML NEB SOLUTION NEB SCH (23:00)
[2017-02-12] MEDS ORDERED: ONDANSETRON HCL 4 MG/2 ML VIAL IVP PRN ×2 (23:00→23:15)
[2017-02-12] MEDS ORDERED: MAGNESIUM HYDROXIDE SUSPENSION 30 ML UDCUP PO PRN (23:00)
[2017-02-12] MEDS: IPRATROPIUM BROMIDE 0.5 MG/2.5 ML NEB SOLUTION NEB SCH (23:00)
[2017-02-12] MEDS ORDERED: BISACODYL 10 MG RECTAL RECTAL SUPPOSITORY PR PRN (23:00)
[2017-02-12] MEDS ORDERED: 0.9% SODIUM CHLORIDE 10 ML SYRINGE IVP PRN (23:15)
[2017-02-12] MEDS ORDERED: ACETAMINOPHEN 325 MG TABLET PO PRN (23:15)
[2017-02-13] MEDS ORDERED: SODIUM CHLORIDE 0.9% 1,000 ML IV ONE (00:45)
[2017-02-13] MEDS ORDERED: IPRATROPIUM BROMIDE 0.5 MG/2.5 ML NEB SOLUTION NEB ONE (00:45)
[2017-02-13] MEDS ORDERED: ALBUTEROL SULFATE 5 MG/ML 20 ML NEB SOLN [BULK] NEB ONE (00:45)
[2017-02-13] MEDS ORDERED: SUCCINYLCHOLINE CHLORIDE 20 MG/ML 10 ML VIAL ONE (00:53)
[2017-02-13] MEDS ORDERED: RAPID SEQUENCE KIT [RSI] 1 EACH KIT ONE ×2 (00:53)
[2017-02-13 01:00] LABS: ABG A-A DIFF O2 343.3 mmHg (10-20.0); ABG BASE EXCESS 6.7 mmol/L (-2.0-3.0); ABG HCO3 28.1 mmol/L (22.0-26.0); ABG OXYHEMOGLOBIN 97.8 % (94.0-100.0); TEMPERATURE, FAHRENHEIT, BG 98.6 FAHREN (96.0-98.6)
[2017-02-13 01:01] LABS: ABG PCO2 91 mmHg (35-45); ABG PH 7.199 (7.35-7.450); ALLEN TEST, BLOOD GAS POSITIVE
[2017-02-13] MEDS ORDERED: MIDAZOLAM HCL 5 MG/ML VIAL ONE (01:06)
[2017-02-13] MEDS ORDERED: MIDAZOLAM HCL 2 MG/2 ML VIAL IVP ONE ×2 (01:15)
[2017-02-13 02:13] LABS: ABG A-A DIFF O2 267.9 mmHg (10-20.0); ABG HCO3 25.9 mmol/L (22.0-26.0); ABG OXYHEMOGLOBIN 96.9 % (94.0-100.0); ABG PCO2 44 mmHg (35-45); ABG PH 7.403 (7.35-7.450); TEMPERATURE, FAHRENHEIT, BG 97.7 FAHREN (96.0-98.6)
[2017-02-13 02:14] LABS: ALLEN TEST, BLOOD GAS Positive
[2017-02-13] MEDS ORDERED: PROPOFOL 1000 MG/ISO-OSM 100 ML IV PRN (02:15)
[2017-02-13] MEDS: IPRATROPIUM BROMIDE 0.5 MG/2.5 ML NEB SOLUTION NEB SCH ×6 (03:08→22:54)
[2017-02-13] MEDS: ALBUTEROL SULFATE 2.5 MG/0.5 ML NEB SOLUTION NEB SCH ×6 (03:08→22:54)
[2017-02-13 04:00] VITALS: BP 151/65
[2017-02-13 05:18] LABS: EOSINOPHILS % (AUTO) 0 % (1.0-6.0); HEMOGLOBIN 10.6 g/dL (13.5-17.5); LYMPHOCYTES # (AUTO) 0.6 K/uL (1.0-4.8); LYMPHOCYTES % (AUTO) 5.4 % (22.0-44.0); MEAN CORPUSCULAR HEMOGLOBIN 28.9 pg (26.0-34.0); MEAN CORPUSCULAR HGB CONC 31.1 G/dL (31.0-37.0); MEAN CORPUSCULAR VOLUME 93 fL (80-100); MONOCYTES # (AUTO) 0.3 K/uL (0.1-1.0); MONOCYTES % (AUTO) 2.7 % (2.0-9.0); PLATELET COUNT (AUTO) 183 K/uL (150-450); RED BLOOD CELL COUNT(AUTO) 3.66 MIL/uL (4.50-5.90); RED CELL DISTRIBUTION WIDTH 13.4 % (11.5-14.5); WHITE BLOOD COUNT (AUTO) 10.9 K/uL (4.5-11.0)
[2017-02-13] MEDS: MethylPREDNISolone SOD SUCC 125 MG/2 ML VIAL IVP SCH ×3 (05:41→18:35)
[2017-02-13] MEDS: LEVOTHYROXINE SODIUM 88 MCG TABLET PO SCH (06:10)
[2017-02-13 06:23] LABS: ANION GAP 4 mmol/L (8-16); CALCIUM, TOTAL 9.3 mg/dL (8.8-10.5); CARBON DIOXIDE 30 mmol/L (22-29); CHLORIDE 108 mmol/L (98-107); CHOL/HDL RATIO 2.8 (4.2-7.3); CREATINE KINASE, TOTAL 16 U/L (39-308); CREATININE 0.97 mg/dL (0.60-1.30); GLOMERULAR FILTR. RATE CALC > 60 mL/min (>60); POTASSIUM 4.1 mmol/L (3.5-5.1); SODIUM SERUM 142 mmol/L (136-145); THYROID STIMULATING HORMONE 0.45 uIU/mL (0.36-3.74); UREA NITROGEN, BLOOD 26 mg/dL (7-18)
[2017-02-13 06:38] LABS: NEUTROPHILS % (AUTO) 91.9 % (40.0-70.0)
[2017-02-13] MEDS ORDERED: VECURONIUM BROMIDE 10 MG/VIAL IVP ONE (07:00)
[2017-02-13] MEDS ORDERED: ETOMIDATE 2 MG/ML 10 ML VIAL IVP ONE (07:00)
[2017-02-13 07:53] LABS: RBC MORPHOLOGY COMMENT NORMAL RBC MORPH
[2017-02-13] MEDS: VALSARTAN 40 MG TABLET PO SCH (07:58)
[2017-02-13] MEDS: FINASTERIDE 5 MG TABLET PO SCH (07:58)
[2017-02-13] MEDS: PANTOPRAZOLE SODIUM 40 MG DR TABLET PO SCH (07:59)
[2017-02-13] MEDS: TAMSULOSIN HCL 0.4 MG CAPSULE PO SCH (07:59)
[2017-02-13] MEDS: FUROSEMIDE 40 MG/4 ML VIAL IVP SCH (07:59)
[2017-02-13] MEDS: DOCUSATE SODIUM 100 MG CAPSULE PO SCH ×2 (07:59→21:12)
[2017-02-13 08:00] VITALS: BP 130/65
[2017-02-13] MEDS ORDERED: FUROSEMIDE 20 MG TABLET PO SCH (09:00)
[2017-02-13] MEDS ORDERED: ENOXAPARIN SODIUM 40 MG/0.4 ML PF SYRINGE SQ SCH (09:00)
[2017-02-13] MEDS ORDERED: APIXABAN 2.5 MG TABLET PO SCH (09:00)
[2017-02-13] MEDS ORDERED: BISACODYL 5 MG EC TABLET PO SCH (09:00)
[2017-02-13 12:00] VITALS: BP 136/62
[2017-02-13 16:00] VITALS: BP 116/60
[2017-02-13 20:00] VITALS: BP 144/91
[2017-02-13] MEDS: MONTELUKAST SODIUM 10 MG TABLET PO SCH (21:12)
[2017-02-14] VITALS: BP 130/76
[2017-02-14] MEDS: MethylPREDNISolone SOD SUCC 125 MG/2 ML VIAL IVP SCH ×5 (00:10→23:58)
[2017-02-14] MEDS: ALBUTEROL SULFATE 2.5 MG/0.5 ML NEB SOLUTION NEB SCH ×6 (03:08→23:15)
[2017-02-14] MEDS: IPRATROPIUM BROMIDE 0.5 MG/2.5 ML NEB SOLUTION NEB SCH ×6 (03:08→23:15)
[2017-02-14 04:00] VITALS: BP 131/54
[2017-02-14] MEDS: LEVOTHYROXINE SODIUM 88 MCG TABLET PO SCH (06:07)
[2017-02-14 07:54] LABS: BASOPHILS % (AUTO) 0.2 % (0.0-2.0); EOSINOPHILS % (AUTO) 0 % (1.0-6.0); HEMATOCRIT 33.7 % (41-53); HEMOGLOBIN 10.7 g/dL (13.5-17.5); LYMPHOCYTES # (AUTO) 0.8 K/uL (1.0-4.8); LYMPHOCYTES % (AUTO) 7.7 % (22.0-44.0); MEAN CORPUSCULAR HEMOGLOBIN 29.1 pg (26.0-34.0); MEAN CORPUSCULAR HGB CONC 31.8 G/dL (31.0-37.0); MEAN CORPUSCULAR VOLUME 92 fL (80-100); MONOCYTES # (AUTO) 0.6 K/uL (0.1-1.0); MONOCYTES % (AUTO) 5.3 % (2.0-9.0); NEUTROPHILS # (AUTO) 9.2 K/uL (1.8-7.7); PLATELET COUNT (AUTO) 212 K/uL (150-450); RED BLOOD CELL COUNT(AUTO) 3.68 MIL/uL (4.50-5.90); RED CELL DISTRIBUTION WIDTH 13.7 % (11.5-14.5); WHITE BLOOD COUNT (AUTO) 10.6 K/uL (4.5-11.0)
[2017-02-14 07:56] LABS: NEUTROPHILS % (AUTO) 86.8 % (40.0-70.0)
[2017-02-14 08:00] VITALS: BP 141/62
[2017-02-14 08:17] LABS: CALCIUM, TOTAL 9.3 mg/dL (8.8-10.5); CREATININE 1.28 mg/dL (0.60-1.30); MAGNESIUM 1.9 mg/dL (1.80-2.40); PHOSPHORUS 2.1 mg/dL (2.5-4.9); POTASSIUM 3.7 mmol/L (3.5-5.1); THYROID STIMULATING HORMONE 0.54 uIU/mL (0.36-3.74)
[2017-02-14] MEDS: DOCUSATE SODIUM 100 MG CAPSULE PO SCH ×2 (09:33→21:00)
[2017-02-14] MEDS: FUROSEMIDE 40 MG/4 ML VIAL IVP SCH (09:33)
[2017-02-14] MEDS: PANTOPRAZOLE SODIUM 40 MG DR TABLET PO SCH (09:33)
[2017-02-14] MEDS: VALSARTAN 40 MG TABLET PO SCH (09:33)
[2017-02-14] MEDS: TAMSULOSIN HCL 0.4 MG CAPSULE PO SCH (09:33)
[2017-02-14] MEDS: FINASTERIDE 5 MG TABLET PO SCH (09:38)
[2017-02-14 10:20] LABS: ABG A-A DIFF O2 82.4 mmHg (10-20.0); ABG BASE EXCESS 6.9 mmol/L (-2.0-3.0); ABG HCO3 30.6 mmol/L (22.0-26.0); ABG OXYHEMOGLOBIN 96.4 % (94.0-100.0); ABG PCO2 35 mmHg (35-45); ABG PH 7.544 (7.35-7.450); ALLEN TEST, BLOOD GAS Positive; TEMPERATURE, FAHRENHEIT, BG 99.3 FAHREN (96.0-98.6)
[2017-02-14 12:00] VITALS: BP 108/51
[2017-02-14] MEDS ORDERED: DEXTROSE 50%-WATER 25 GM/50 ML SYRINGE IVP PRN (13:00)
[2017-02-14] MEDS ORDERED: VANCOMYCIN HCL 1.25 GM in DEXTROSE 5%-WATER 250 ML IV ONE (14:00)
[2017-02-14 16:00] VITALS: BP 117/62
[2017-02-14] MEDS: INSULIN REGULAR, HUMAN 100 UNITS/ML SQ PRN ×2 (18:47→23:59)
[2017-02-14 20:00] VITALS: BP 145/60
[2017-02-14] MEDS: MONTELUKAST SODIUM 10 MG TABLET PO SCH (21:11)
[2017-02-14 21:58] LABS: GLUCOSE,POINT OF CARE 170 MG/DL (70-110)
[2017-02-14 21:58] LABS: GLUCOSE,POINT OF CARE 162 MG/DL (70-110)
[2017-02-14 22:02] LABS: GLUCOSE,POINT OF CARE 199 MG/DL (70-110)
[2017-02-14 23:57] LABS: GLUCOSE,POINT OF CARE 192 MG/DL (70-110)
[2017-02-15] VITALS: BP 127/57
[2017-02-15] MEDS: ALBUTEROL SULFATE 2.5 MG/0.5 ML NEB SOLUTION NEB SCH ×6 (02:23→22:10)
[2017-02-15] MEDS: IPRATROPIUM BROMIDE 0.5 MG/2.5 ML NEB SOLUTION NEB SCH ×6 (02:23→22:10)
[2017-02-15 04:00] VITALS: BP 111/57
[2017-02-15 05:31] LABS: ALBUMIN 2.3 g/dL (3.4-5.0); BILIRUBIN,TOTAL 0.3 mg/dL (0.1-1.0); CALCIUM, TOTAL 9.2 mg/dL (8.8-10.5); CREATININE 1.32 mg/dL (0.60-1.30); POTASSIUM 3.4 mmol/L (3.5-5.1)
[2017-02-15] MEDS: LEVOTHYROXINE SODIUM 88 MCG TABLET PO SCH (06:07)
[2017-02-15] MEDS: MethylPREDNISolone SOD SUCC 125 MG/2 ML VIAL IVP SCH ×3 (06:07→18:00)
[2017-02-15] MEDS: INSULIN REGULAR, HUMAN 100 UNITS/ML SQ PRN ×3 (06:09→18:00)
[2017-02-15 06:16] LABS: EOSINOPHILS % (AUTO) 0 % (1.0-6.0); HEMATOCRIT 32.7 % (41-53); HEMOGLOBIN 10.4 g/dL (13.5-17.5); LYMPHOCYTES # (AUTO) 0.7 K/uL (1.0-4.8); LYMPHOCYTES % (AUTO) 6.1 % (22.0-44.0); MEAN CORPUSCULAR HEMOGLOBIN 29.2 pg (26.0-34.0); MEAN CORPUSCULAR HGB CONC 31.9 G/dL (31.0-37.0); MEAN CORPUSCULAR VOLUME 92 fL (80-100); MONOCYTES # (AUTO) 0.7 K/uL (0.1-1.0); MONOCYTES % (AUTO) 6.1 % (2.0-9.0); NEUTROPHILS # (AUTO) 9.5 K/uL (1.8-7.7); PLATELET COUNT (AUTO) 210 K/uL (150-450); RED BLOOD CELL COUNT(AUTO) 3.57 MIL/uL (4.50-5.90); RED CELL DISTRIBUTION WIDTH 13.9 % (11.5-14.5); WHITE BLOOD COUNT (AUTO) 10.9 K/uL (4.5-11.0)
[2017-02-15 07:02] LABS: GLUCOSE COMMENT 1 Received Meds; GLUCOSE,POINT OF CARE 214 MG/DL (70-110)
[2017-02-15 07:16] LABS: NEUTROPHILS % (AUTO) 87.8 % (40.0-70.0)
[2017-02-15 08:00] VITALS: BP 119/57
[2017-02-15] MEDS: FUROSEMIDE 40 MG/4 ML VIAL IVP SCH (09:11)
[2017-02-15] MEDS: VALSARTAN 40 MG TABLET PO SCH (09:11)
[2017-02-15] MEDS: VANCOMYCIN HCL 1.25 GM in DEXTROSE 5%-WATER 250 ML IV SCH (09:11)
[2017-02-15] MEDS: FINASTERIDE 5 MG TABLET PO SCH (09:11)
[2017-02-15] MEDS: PANTOPRAZOLE SODIUM 40 MG DR TABLET PO SCH (09:11)
[2017-02-15] MEDS: TAMSULOSIN HCL 0.4 MG CAPSULE PO SCH (09:12)
[2017-02-15] MEDS: DOCUSATE SODIUM 100 MG CAPSULE PO SCH ×2 (09:12→21:00)
[2017-02-15 12:00] VITALS: BP 106/65
[2017-02-15 16:00] VITALS: BP 122/66
[2017-02-15 16:21] LABS: ABG A-A DIFF O2 74.2 mmHg (10-20.0); ABG BASE EXCESS 8.2 mmol/L (-2.0-3.0); ABG HCO3 31.8 mmol/L (22.0-26.0); ABG OXYHEMOGLOBIN 96.3 % (94.0-100.0); ABG PCO2 36 mmHg (35-45); ABG PH 7.548 (7.35-7.450)
[2017-02-15 16:23] LABS: ALLEN TEST, BLOOD GAS Positive
[2017-02-15 17:37] LABS: GLUCOSE COMMENT 1 Received Meds; GLUCOSE,POINT OF CARE 232 MG/DL (70-110)
[2017-02-15 17:42] LABS: GLUCOSE COMMENT 1 Received Meds; GLUCOSE,POINT OF CARE 218 MG/DL (70-110)
[2017-02-15] MEDS: ALBUMIN HUMAN 25%-12.5GM/50ML 50 ML IV SCH (17:45)
[2017-02-15 20:00] VITALS: BP 103/57
[2017-02-15] MEDS: MONTELUKAST SODIUM 10 MG TABLET PO SCH (21:20)
[2017-02-16] VITALS: BP 133/68
[2017-02-16] MEDS: ACETAMINOPHEN 650 MG/20.3 ML SOLUTION UDCUP NG PRN (00:18)
[2017-02-16] MEDS: MethylPREDNISolone SOD SUCC 125 MG/2 ML VIAL IVP SCH ×5 (00:18→23:37)
[2017-02-16] MEDS: ALBUMIN HUMAN 25%-12.5GM/50ML 50 ML IV SCH ×5 (00:18→23:37)
[2017-02-16] MEDS: ZOLPIDEM TARTRATE 5 MG TABLET PO PRN ×2 (00:18→22:48)
[2017-02-16] MEDS: INSULIN REGULAR, HUMAN 100 UNITS/ML SQ PRN ×3 (00:21→12:15)
[2017-02-16] MEDS: IPRATROPIUM BROMIDE 0.5 MG/2.5 ML NEB SOLUTION NEB SCH ×6 (02:35→22:55)
[2017-02-16] MEDS: ALBUTEROL SULFATE 2.5 MG/0.5 ML NEB SOLUTION NEB SCH ×6 (02:35→22:55)
[2017-02-16 04:00] VITALS: BP 139/64
[2017-02-16 05:31] LABS: CALCIUM, TOTAL 8.9 mg/dL (8.8-10.5); CREATININE 1.35 mg/dL (0.60-1.30); POTASSIUM 3.1 mmol/L (3.5-5.1)
[2017-02-16] MEDS ORDERED: POTASSIUM CHL 10 MEQ/WATER 50 ML IV PRN (06:30)
[2017-02-16] MEDS: POTASSIUM CHLORIDE 20 MEQ ER TABLET PO PRN ×2 (06:40→12:14)
[2017-02-16] MEDS: LEVOTHYROXINE SODIUM 88 MCG TABLET PO SCH (06:40)
[2017-02-16 08:00] VITALS: BP 125/55
[2017-02-16] MEDS: VANCOMYCIN HCL 1.25 GM in DEXTROSE 5%-WATER 250 ML IV SCH (08:12)
[2017-02-16] MEDS: DOCUSATE SODIUM 100 MG CAPSULE PO SCH ×3 (08:12→21:43)
[2017-02-16] MEDS: PANTOPRAZOLE SODIUM 40 MG DR TABLET PO SCH (08:12)
[2017-02-16] MEDS: FINASTERIDE 5 MG TABLET PO SCH (08:12)
[2017-02-16] MEDS: TAMSULOSIN HCL 0.4 MG CAPSULE PO SCH (08:12)
[2017-02-16] MEDS: VALSARTAN 40 MG TABLET PO SCH (08:12)
[2017-02-16 08:28] LABS: ABG A-A DIFF O2 53.3 mmHg (10-20.0); ABG BASE EXCESS 11.4 mmol/L (-2.0-3.0); ABG HCO3 34.4 mmol/L (22.0-26.0); ABG OXYHEMOGLOBIN 97.5 % (94.0-100.0); ABG PCO2 39 mmHg (35-45); ABG PH 7.555 (7.35-7.450); TEMPERATURE, FAHRENHEIT, BG 99.5 FAHREN (96.0-98.6)
[2017-02-16 08:30] LABS: ALLEN TEST, BLOOD GAS Positive
[2017-02-16] MEDS ORDERED: SODIUM CHLORIDE 0.9% 250 ML IV ONE (08:32)
[2017-02-16 09:37] LABS: GLUCOSE COMMENT 1 Received Meds; GLUCOSE,POINT OF CARE 261 MG/DL (70-110)
[2017-02-16 09:37] LABS: GLUCOSE COMMENT 1 Received Meds; GLUCOSE,POINT OF CARE 246 MG/DL (70-110)
[2017-02-16] MEDS ORDERED: 0.9% SODIUM CHLORIDE 10 ML SYRINGE IVP PRN (11:45)
[2017-02-16 12:00] VITALS: BP 157/61
[2017-02-16 12:42] LABS: ABG A-A DIFF O2 82.7 mmHg (10-20.0); ABG BASE EXCESS 8.5 mmol/L (-2.0-3.0); ABG OXYHEMOGLOBIN 96.7 % (94.0-100.0); ABG PCO2 36 mmHg (35-45); ABG PH 7.556 (7.35-7.450); ALLEN TEST, BLOOD GAS Positive; TEMPERATURE, FAHRENHEIT, BG 98.6 FAHREN (96.0-98.6)
[2017-02-16 13:12] LABS: GLUCOSE COMMENT 1 Received Meds; GLUCOSE,POINT OF CARE 171 MG/DL (70-110)
[2017-02-16 14:58] LABS: ABG A-A DIFF O2 87.5 mmHg (10-20.0); ABG BASE EXCESS 9.1 mmol/L (-2.0-3.0); ABG HCO3 32.3 mmol/L (22.0-26.0); ABG OXYHEMOGLOBIN 96.6 % (94.0-100.0); ABG PCO2 39 mmHg (35-45); ABG PH 7.527 (7.35-7.450); TEMPERATURE, FAHRENHEIT, BG 98.6 FAHREN (96.0-98.6)
[2017-02-16 14:59] LABS: ALLEN TEST, BLOOD GAS Positive
[2017-02-16 16:00] VITALS: BP 119/59
[2017-02-16 20:00] VITALS: BP 128/77
[2017-02-16] MEDS ORDERED: APIXABAN 5 MG TABLET PO SCH (21:00)
[2017-02-16] MEDS ORDERED: HEPARIN SODIUM,PORCINE 5,000 UNITS/ML VIAL SQ SCH (21:00)
[2017-02-16] MEDS: MONTELUKAST SODIUM 10 MG TABLET PO SCH ×2 (21:00→21:44)
[2017-02-16] MEDS: APIXABAN 2.5 MG TABLET PO SCH (21:00)
[2017-02-17] VITALS: BP 121/50
[2017-02-17] MEDS: ALBUTEROL SULFATE 2.5 MG/0.5 ML NEB SOLUTION NEB SCH ×6 (02:30→22:49)
[2017-02-17] MEDS: IPRATROPIUM BROMIDE 0.5 MG/2.5 ML NEB SOLUTION NEB SCH ×6 (02:30→22:49)
[2017-02-17 04:00] VITALS: BP 120/68
[2017-02-17] MEDS: ALBUMIN HUMAN 25%-12.5GM/50ML 50 ML IV SCH ×4 (05:43→23:26)
[2017-02-17] MEDS: MethylPREDNISolone SOD SUCC 125 MG/2 ML VIAL IVP SCH ×4 (05:43→23:27)
[2017-02-17 05:51] LABS: GLUCOSE,POINT OF CARE 163 MG/DL (70-110)
[2017-02-17] MEDS: LEVOTHYROXINE SODIUM 88 MCG TABLET PO SCH (05:52)
[2017-02-17 06:09] LABS: EOSINOPHILS % (AUTO) 0 % (1.0-6.0); HEMATOCRIT 32.3 % (41-53); HEMOGLOBIN 10.1 g/dL (13.5-17.5); LYMPHOCYTES # (AUTO) 0.5 K/uL (1.0-4.8); LYMPHOCYTES % (AUTO) 3.7 % (22.0-44.0); MEAN CORPUSCULAR HEMOGLOBIN 28.8 pg (26.0-34.0); MEAN CORPUSCULAR HGB CONC 31.3 G/dL (31.0-37.0); MEAN CORPUSCULAR VOLUME 92 fL (80-100); MONOCYTES # (AUTO) 0.5 K/uL (0.1-1.0); MONOCYTES % (AUTO) 3.6 % (2.0-9.0); NEUTROPHILS # (AUTO) 11.7 K/uL (1.8-7.7); PLATELET COUNT (AUTO) 185 K/uL (150-450); RED BLOOD CELL COUNT(AUTO) 3.51 MIL/uL (4.50-5.90); WHITE BLOOD COUNT (AUTO) 12.6 K/uL (4.5-11.0)
[2017-02-17 06:26] LABS: CALCIUM, TOTAL 9.5 mg/dL (8.8-10.5); CREATININE 1.22 mg/dL (0.60-1.30)
[2017-02-17 06:43] LABS: NEUTROPHILS % (AUTO) 92.7 % (40.0-70.0)
[2017-02-17 06:47] LABS: GLUCOSE COMMENT 1 Received Meds; GLUCOSE,POINT OF CARE 160 MG/DL (70-110)
[2017-02-17 06:47] LABS: GLUCOSE,POINT OF CARE 182 MG/DL (70-110)
[2017-02-17 08:00] VITALS: BP 126/70
[2017-02-17] MEDS: VANCOMYCIN HCL 1.25 GM in DEXTROSE 5%-WATER 250 ML IV SCH (08:00)
[2017-02-17] MEDS ORDERED: POTASSIUM CHL 10 MEQ/WATER 50 ML IV SCH (08:30)
[2017-02-17] MEDS ORDERED: METOPROLOL TARTRATE 25 MG TABLET PO SCH (09:00)
[2017-02-17] MEDS ORDERED: SODIUM CHLORIDE 0.9% 250 ML IV ONE (09:13)
[2017-02-17] MEDS: DOCUSATE SODIUM 100 MG CAPSULE PO SCH ×2 (10:44→21:33)
[2017-02-17] MEDS: FINASTERIDE 5 MG TABLET PO SCH (10:44)
[2017-02-17] MEDS: PANTOPRAZOLE SODIUM 40 MG DR TABLET PO SCH (10:44)
[2017-02-17] MEDS: TAMSULOSIN HCL 0.4 MG CAPSULE PO SCH (10:44)
[2017-02-17] MEDS: VALSARTAN 40 MG TABLET PO SCH (10:44)
[2017-02-17 11:57] LABS: GLUCOSE COMMENT 1 FASTING; GLUCOSE,POINT OF CARE 150 MG/DL (70-110)
[2017-02-17 12:00] VITALS: BP 131/23
[2017-02-17 16:00] VITALS: BP 152/96
[2017-02-17 17:58] LABS: GLUCOSE,POINT OF CARE 130 MG/DL (70-110)
[2017-02-17] MEDS: CeFAZolin 2 GM/DEXTROSE 50 ML IV SCH (19:06)
[2017-02-17 20:00] VITALS: BP 143/68
[2017-02-17] MEDS: MONTELUKAST SODIUM 10 MG TABLET PO SCH (21:33)
[2017-02-17] MEDS: INSULIN REGULAR, HUMAN 100 UNITS/ML SQ PRN (22:27)
[2017-02-18] VITALS: BP 149/72
[2017-02-18] MEDS: CeFAZolin 2 GM/DEXTROSE 50 ML IV SCH ×3 (02:45→17:50)
[2017-02-18] MEDS: IPRATROPIUM BROMIDE 0.5 MG/2.5 ML NEB SOLUTION NEB SCH ×6 (03:00→22:01)
[2017-02-18] MEDS: ALBUTEROL SULFATE 2.5 MG/0.5 ML NEB SOLUTION NEB SCH ×6 (03:00→22:01)
[2017-02-18 04:00] VITALS: BP 96/57
[2017-02-18 05:19] LABS: CALCIUM, TOTAL 9.2 mg/dL (8.8-10.5); CREATININE 1.23 mg/dL (0.60-1.30); PHOSPHORUS 3.7 mg/dL (2.5-4.9); POTASSIUM 4.1 mmol/L (3.5-5.1)
[2017-02-18] MEDS: ALBUMIN HUMAN 25%-12.5GM/50ML 50 ML IV SCH ×3 (05:37→17:50)
[2017-02-18] MEDS: MethylPREDNISolone SOD SUCC 125 MG/2 ML VIAL IVP SCH ×2 (05:37→21:13)
[2017-02-18 05:42] LABS: GLUCOSE,POINT OF CARE 167 MG/DL (70-110)
[2017-02-18 05:42] LABS: GLUCOSE,POINT OF CARE 153 MG/DL (70-110)
[2017-02-18] MEDS: LEVOTHYROXINE SODIUM 88 MCG TABLET PO SCH (05:53)
[2017-02-18] MEDS: INSULIN REGULAR, HUMAN 100 UNITS/ML SQ PRN ×4 (05:55→21:44)
[2017-02-18 06:31] LABS: EOSINOPHILS # (AUTO) 0.01 K/uL (0.00-0.70); EOSINOPHILS % (AUTO) 0.04 % (1.0-6.0); HEMATOCRIT 29.2 % (41-53); HEMOGLOBIN 9.5 g/dL (13.5-17.5); LYMPHOCYTES # (AUTO) 0.4 K/uL (1.0-4.8); LYMPHOCYTES % (AUTO) 2.9 % (22.0-44.0); MEAN CORPUSCULAR HEMOGLOBIN 29.4 pg (26.0-34.0); MEAN CORPUSCULAR HGB CONC 32.5 G/dL (31.0-37.0); MEAN CORPUSCULAR VOLUME 90 fL (80-100); MONOCYTES # (AUTO) 0.4 K/uL (0.1-1.0); MONOCYTES % (AUTO) 2.9 % (2.0-9.0); PLATELET COUNT (AUTO) 188 K/uL (150-450); RED BLOOD CELL COUNT(AUTO) 3.23 MIL/uL (4.50-5.90); RED CELL DISTRIBUTION WIDTH 13.5 % (11.5-14.5); WHITE BLOOD COUNT (AUTO) 14.9 K/uL (4.5-11.0)
[2017-02-18 06:44] LABS: NEUTROPHILS % (AUTO) 94.2 % (40.0-70.0)
[2017-02-18 08:00] VITALS: BP 136/82
[2017-02-18] MEDS: VALSARTAN 40 MG TABLET PO SCH (08:37)
[2017-02-18] MEDS: DOCUSATE SODIUM 100 MG CAPSULE PO SCH ×2 (08:37→21:14)
[2017-02-18] MEDS: PANTOPRAZOLE SODIUM 40 MG DR TABLET PO SCH (08:37)
[2017-02-18] MEDS: VANCOMYCIN HCL 1.25 GM in DEXTROSE 5%-WATER 250 ML IV SCH (08:37)
[2017-02-18] MEDS: TAMSULOSIN HCL 0.4 MG CAPSULE PO SCH (08:37)
[2017-02-18] MEDS: FINASTERIDE 5 MG TABLET PO SCH (08:37)
[2017-02-18 12:27] VITALS: BP 147/71
[2017-02-18] MEDS ORDERED: SODIUM CHLORIDE 0.9% 250 ML IV ONE (13:42)
[2017-02-18 16:00] VITALS: BP 92/52
[2017-02-18 20:00] VITALS: BP 130/89
[2017-02-18] MEDS: MONTELUKAST SODIUM 10 MG TABLET PO SCH (21:14)
[2017-02-19] VITALS (7 sets, daily range): BP systolic 97–233; BP diastolic 49–79
[2017-02-19] MEDS: ALBUMIN HUMAN 25%-12.5GM/50ML 50 ML IV SCH ×4 (00:39→17:26)
[2017-02-19] MEDS: IPRATROPIUM BROMIDE 0.5 MG/2.5 ML NEB SOLUTION NEB SCH ×6 (02:02→23:09)
[2017-02-19] MEDS: ALBUTEROL SULFATE 2.5 MG/0.5 ML NEB SOLUTION NEB SCH ×6 (02:02→23:09)
[2017-02-19] MEDS: CeFAZolin 2 GM/DEXTROSE 50 ML IV SCH ×3 (02:46→18:59)
[2017-02-19 04:52] LABS: GLUCOSE COMMENT 1 Received Meds; GLUCOSE,POINT OF CARE 169 MG/DL (70-110)
[2017-02-19 04:52] LABS: GLUCOSE COMMENT 1 Received Meds; GLUCOSE,POINT OF CARE 158 MG/DL (70-110)
[2017-02-19 05:43] LABS: INR 1.3 (0.9-1.1); PROTHROMBIN TIME 14.1 SEC (9.4-11.6)
[2017-02-19] MEDS: LEVOTHYROXINE SODIUM 88 MCG TABLET PO SCH (05:49)
[2017-02-19] MEDS: INSULIN REGULAR, HUMAN 100 UNITS/ML SQ PRN ×2 (05:52→21:54)
[2017-02-19 06:01] LABS: BASOPHILS % (AUTO) 0.1 % (0.0-2.0); EOSINOPHILS % (AUTO) 0 % (1.0-6.0); HEMATOCRIT 29.7 % (41-53); HEMOGLOBIN 9.3 g/dL (13.5-17.5); LYMPHOCYTES # (AUTO) 0.5 K/uL (1.0-4.8); MEAN CORPUSCULAR HEMOGLOBIN 28.6 pg (26.0-34.0); MEAN CORPUSCULAR HGB CONC 31.2 G/dL (31.0-37.0); MEAN CORPUSCULAR VOLUME 92 fL (80-100); MONOCYTES # (AUTO) 0.4 K/uL (0.1-1.0); MONOCYTES % (AUTO) 2.8 % (2.0-9.0); NEUTROPHILS # (AUTO) 14.2 K/uL (1.8-7.7); PLATELET COUNT (AUTO) 125 K/uL (150-450); RED BLOOD CELL COUNT(AUTO) 3.24 MIL/uL (4.50-5.90); RED CELL DISTRIBUTION WIDTH 13.8 % (11.5-14.5); WHITE BLOOD COUNT (AUTO) 15.1 K/uL (4.5-11.0)
[2017-02-19 06:06] LABS: ANION GAP 4 mmol/L (8-16); CALCIUM, TOTAL 9.1 mg/dL (8.8-10.5); CARBON DIOXIDE 31 mmol/L (22-29); CHLORIDE 99 mmol/L (98-107); CREATININE 1.05 mg/dL (0.60-1.30); GLOMERULAR FILTR. RATE CALC > 60 mL/min (>60); POTASSIUM 4.4 mmol/L (3.5-5.1); SODIUM SERUM 134 mmol/L (136-145); UREA NITROGEN, BLOOD 36 mg/dL (7-18)
[2017-02-19 06:38] LABS: NEUTROPHILS % (AUTO) 94.1 % (40.0-70.0)
[2017-02-19 07:23] LABS: GLUCOSE COMMENT 1 Received Meds; GLUCOSE,POINT OF CARE 162 MG/DL (70-110)
[2017-02-19 07:32] LABS: GLUCOSE COMMENT 1 Received Meds; GLUCOSE,POINT OF CARE 170 MG/DL (70-110)
[2017-02-19 08:37] LABS: RBC MORPHOLOGY COMMENT NORMAL RBC MORPH
[2017-02-19] MEDS: PANTOPRAZOLE SODIUM 40 MG DR TABLET PO SCH (09:00)
[2017-02-19] MEDS: VALSARTAN 40 MG TABLET PO SCH ×2 (09:00→16:45)
[2017-02-19] MEDS: FINASTERIDE 5 MG TABLET PO SCH (09:00)
[2017-02-19] MEDS: TAMSULOSIN HCL 0.4 MG CAPSULE PO SCH (09:00)
[2017-02-19] MEDS: DOCUSATE SODIUM 100 MG CAPSULE PO SCH ×2 (09:00→21:18)
[2017-02-19] MEDS: MethylPREDNISolone SOD SUCC 125 MG/2 ML VIAL IVP SCH ×2 (09:47→21:19)
[2017-02-19] MEDS: VANCOMYCIN HCL 1.25 GM in DEXTROSE 5%-WATER 250 ML IV SCH (09:47)
[2017-02-19] MEDS ORDERED: HEPARIN SODIUM 1000 UNITS/NS 500 ML IV ONE (11:30)
[2017-02-19 12:47] LABS: GLUCOSE,POINT OF CARE 147 MG/DL (70-110)
[2017-02-19] MEDS ORDERED: SODIUM CHLORIDE 0.9% 1,000 ML IV ONE (13:26)
[2017-02-19] MEDS ORDERED: LIDOCAINE HCL BUFFERED 1% 20 ML VIAL INJ ONE (15:00)
[2017-02-19] MEDS ORDERED: NICARDipine 20 MG/DEXT,ISO-OSM 200 ML IV PRN (15:32)
[2017-02-19] MEDS: HydrALAZINE HCL 20 MG/ML VIAL IVP PRN (16:15)
[2017-02-19 16:39] LABS: ABG A-A DIFF O2 62.6 mmHg (10-20.0); ABG BASE EXCESS 4.3 mmol/L (-2.0-3.0); ABG HCO3 28.1 mmol/L (22.0-26.0); ABG OXYHEMOGLOBIN 96.4 % (94.0-100.0); ABG PCO2 39 mmHg (35-45); ABG PH 7.472 (7.35-7.450)
[2017-02-19 19:27] LABS: GLUCOSE,POINT OF CARE 137 MG/DL (70-110)
[2017-02-19] MEDS: MONTELUKAST SODIUM 10 MG TABLET PO SCH (21:18)
[2017-02-20] VITALS: BP 152/54
[2017-02-20] MEDS: ALBUMIN HUMAN 25%-12.5GM/50ML 50 ML IV SCH ×4 (01:05→18:27)
[2017-02-20] MEDS: CeFAZolin 2 GM/DEXTROSE 50 ML IV SCH ×3 (02:21→17:50)
[2017-02-20] MEDS: ALBUTEROL SULFATE 2.5 MG/0.5 ML NEB SOLUTION NEB SCH ×6 (04:03→23:11)
[2017-02-20] MEDS: IPRATROPIUM BROMIDE 0.5 MG/2.5 ML NEB SOLUTION NEB SCH ×6 (04:03→23:11)
[2017-02-20 04:09] VITALS: BP 150/39
[2017-02-20 05:42] LABS: GLUCOSE COMMENT 1 Received Meds; GLUCOSE,POINT OF CARE 147 MG/DL (70-110)
[2017-02-20] MEDS: LEVOTHYROXINE SODIUM 88 MCG TABLET PO SCH (06:08)
[2017-02-20 06:14] LABS: ANION GAP 4 mmol/L (8-16); CALCIUM, TOTAL 8.8 mg/dL (8.8-10.5); CARBON DIOXIDE 31 mmol/L (22-29); CHLORIDE 99 mmol/L (98-107); CREATININE 0.95 mg/dL (0.60-1.30); GLOMERULAR FILTR. RATE CALC > 60 mL/min (>60); POTASSIUM 4.4 mmol/L (3.5-5.1); SODIUM SERUM 134 mmol/L (136-145); UREA NITROGEN, BLOOD 31 mg/dL (7-18)
[2017-02-20 06:47] LABS: GLUCOSE,POINT OF CARE 132 MG/DL (70-110)
[2017-02-20 08:00] VITALS: BP 145/50
[2017-02-20] MEDS: PANTOPRAZOLE SODIUM 40 MG DR TABLET PO SCH (08:16)
[2017-02-20] MEDS: TAMSULOSIN HCL 0.4 MG CAPSULE PO SCH (08:16)
[2017-02-20] MEDS: VALSARTAN 40 MG TABLET PO SCH (08:16)
[2017-02-20] MEDS: DOCUSATE SODIUM 100 MG CAPSULE PO SCH ×2 (08:16→21:32)
[2017-02-20] MEDS: FINASTERIDE 5 MG TABLET PO SCH (08:16)
[2017-02-20] MEDS: MethylPREDNISolone SOD SUCC 125 MG/2 ML VIAL IVP SCH ×2 (08:17→21:32)
[2017-02-20] MEDS: VANCOMYCIN HCL 1.25 GM in DEXTROSE 5%-WATER 250 ML IV SCH (08:49)
[2017-02-20 12:00] VITALS: BP 142/48
[2017-02-20] MEDS: INSULIN REGULAR, HUMAN 100 UNITS/ML SQ PRN ×2 (12:10→21:34)
[2017-02-20 12:57] LABS: GLUCOSE,POINT OF CARE 155 MG/DL (70-110)
[2017-02-20 16:00] VITALS: BP 111/65
[2017-02-20 17:32] LABS: GLUCOSE,POINT OF CARE 140 MG/DL (70-110)
[2017-02-20 20:00] VITALS: BP 141/85
[2017-02-20] MEDS: MONTELUKAST SODIUM 10 MG TABLET PO SCH (21:32)
[2017-02-20] MEDS: HydrALAZINE HCL 20 MG/ML VIAL IVP PRN (23:20)
[2017-02-21] VITALS (8 sets, daily range): BP systolic 139–169; BP diastolic 43–56
[2017-02-21] MEDS: ALBUMIN HUMAN 25%-12.5GM/50ML 50 ML IV SCH ×4 (01:27→19:34)
[2017-02-21] MEDS: ALBUTEROL SULFATE 2.5 MG/0.5 ML NEB SOLUTION NEB SCH ×6 (02:47→23:43)
[2017-02-21] MEDS: IPRATROPIUM BROMIDE 0.5 MG/2.5 ML NEB SOLUTION NEB SCH ×6 (02:47→23:42)
[2017-02-21] MEDS: CeFAZolin 2 GM/DEXTROSE 50 ML IV SCH ×3 (02:49→19:35)
[2017-02-21 05:47] LABS: EOSINOPHILS % (AUTO) 0 % (1.0-6.0); HEMATOCRIT 29.7 % (41-53); HEMOGLOBIN 9.3 g/dL (13.5-17.5); LYMPHOCYTES # (AUTO) 0.4 K/uL (1.0-4.8); LYMPHOCYTES % (AUTO) 2.7 % (22.0-44.0); MEAN CORPUSCULAR HEMOGLOBIN 28.7 pg (26.0-34.0); MEAN CORPUSCULAR HGB CONC 31.4 G/dL (31.0-37.0); MEAN CORPUSCULAR VOLUME 91 fL (80-100); MONOCYTES # (AUTO) 0.7 K/uL (0.1-1.0); NEUTROPHILS # (AUTO) 13.7 K/uL (1.8-7.7); PLATELET COUNT (AUTO) 172 K/uL (150-450); RED BLOOD CELL COUNT(AUTO) 3.25 MIL/uL (4.50-5.90); RED CELL DISTRIBUTION WIDTH 13.8 % (11.5-14.5); WHITE BLOOD COUNT (AUTO) 14.9 K/uL (4.5-11.0)
[2017-02-21 06:12] LABS: ANION GAP 6 mmol/L (8-16); CARBON DIOXIDE 30 mmol/L (22-29); CHLORIDE 98 mmol/L (98-107); CREATININE 0.81 mg/dL (0.60-1.30); GLOMERULAR FILTR. RATE CALC > 60 mL/min (>60); POTASSIUM 4.5 mmol/L (3.5-5.1); SODIUM SERUM 134 mmol/L (136-145); UREA NITROGEN, BLOOD 28 mg/dL (7-18)
[2017-02-21] MEDS: LEVOTHYROXINE SODIUM 88 MCG TABLET PO SCH (06:17)
[2017-02-21] MEDS ORDERED: BACITRACIN 28.4 GM OINTMENT TP ONE (06:27)
[2017-02-21] MEDS ORDERED: GUM MASTIC/STORAX/MSAL/ALCOHOL LIQUID 0.67 ML VIAL TP ONE (06:27)
[2017-02-21] MEDS ORDERED: LIDOCAINE HCL 1%/EPI 1:200,000/PF 10 ML VIAL ONE (06:27)
[2017-02-21] MEDS ORDERED: SODIUM CHLORIDE 0.9% 0 ML IV ONE ×2 (06:28)
[2017-02-21] MEDS ORDERED: SODIUM CHLORIDE 0.9% 250 ML IV ONE (06:28)
[2017-02-21] MEDS ORDERED: SODIUM CHLORIDE 0.9% 10 ML ONE (06:28)
[2017-02-21] MEDS ORDERED: RINGERS SOLUTION,LACTATED 1,000 ML IV ONE (06:28)
[2017-02-21] MEDS ORDERED: BACITRACIN 50,000 UNITS/VIAL ONE (06:29)
[2017-02-21 06:42] LABS: GLUCOSE,POINT OF CARE 130 MG/DL (70-110)
[2017-02-21 06:42] LABS: GLUCOSE,POINT OF CARE 165 MG/DL (70-110)
[2017-02-21 06:47] LABS: NEUTROPHILS % (AUTO) 92.3 % (40.0-70.0)
[2017-02-21] MEDS: VANCOMYCIN HCL 1.25 GM in DEXTROSE 5%-WATER 250 ML IV SCH (08:00)
[2017-02-21] MEDS ORDERED: VANCOMYCIN HCL 1 GM/VIAL ONE (08:46)
[2017-02-21] MEDS ORDERED: OXYGEN THERAPY IH SCH (08:59)
[2017-02-21] MEDS ORDERED: MEPERIDINE-PF 25 MG/ML SYRINGE IVP PRN (09:00)
[2017-02-21] MEDS ORDERED: FentaNYL CITRATE-PF 100 MCG/2 ML VIAL IVP PRN (09:00)
[2017-02-21] MEDS: ACETAMINOPHEN 325 MG TABLET PO PRN (11:07)
[2017-02-21] MEDS: FINASTERIDE 5 MG TABLET PO SCH (11:07)
[2017-02-21] MEDS: TAMSULOSIN HCL 0.4 MG CAPSULE PO SCH (11:08)
[2017-02-21] MEDS: MethylPREDNISolone SOD SUCC 125 MG/2 ML VIAL IVP SCH ×2 (11:08→21:34)
[2017-02-21] MEDS: PANTOPRAZOLE SODIUM 40 MG DR TABLET PO SCH (11:08)
[2017-02-21] MEDS: VALSARTAN 40 MG TABLET PO SCH (11:08)
[2017-02-21] MEDS: DOCUSATE SODIUM 100 MG CAPSULE PO SCH ×2 (11:08→21:34)
[2017-02-21 11:21] LABS: APPEARANCE,CSF STRAW (CLEAR)
[2017-02-21 11:22] LABS: COLOR,CSF COLORLESS (COLORLESS)
[2017-02-21 11:38] LABS: GLUCOSE, CSF 94 mg/dL (50-80); TOTAL PROTEIN, CSF 41 mg/dL (15-45)
[2017-02-21] MEDS ORDERED: FentaNYL CITRATE-PF 100 MCG/2 ML VIAL IVP ONE (12:00)
[2017-02-21] MEDS ORDERED: ROCURONIUM BROMIDE 10 MG/ML 5 ML VIAL IVP ONE (12:00)
[2017-02-21] MEDS ORDERED: PHENYLEPHRINE HCL 10 MG/ML VIAL IVP ONE (12:00)
[2017-02-21] MEDS ORDERED: LIDOCAINE HCL/PF 2% 5 ML VIAL INJ ONE (12:00)
[2017-02-21] MEDS ORDERED: ONDANSETRON HCL 4 MG/2 ML VIAL IVP ONE (12:00)
[2017-02-21] MEDS ORDERED: NALOXONE HCL 0.4 MG/ML VIAL IVP ONE (12:00)
[2017-02-21] MEDS ORDERED: GLYCOPYRROLATE 0.2 MG/ML VIAL IM ONE (12:00)
[2017-02-21 12:18] LABS: GLUCOSE COMMENT 1 Received Meds; GLUCOSE,POINT OF CARE 122 MG/DL (70-110)
[2017-02-21] MEDS: INSULIN REGULAR, HUMAN 100 UNITS/ML SQ PRN ×2 (18:10→21:37)
[2017-02-21] MEDS: MONTELUKAST SODIUM 10 MG TABLET PO SCH (21:34)
[2017-02-21 23:41] LABS: GLUCOSE COMMENT 1 Received Meds; GLUCOSE,POINT OF CARE 147 MG/DL (70-110)
[2017-02-21 23:42] LABS: GLUCOSE,POINT OF CARE 143 MG/DL (70-110)
[2017-02-22] VITALS (10 sets, daily range): BP systolic 118–146; BP diastolic 38–65
[2017-02-22] MEDS: ALBUMIN HUMAN 25%-12.5GM/50ML 50 ML IV SCH ×4 (01:30→19:00)
[2017-02-22] MEDS ORDERED: SODIUM CHLORIDE 0.9% 250 ML IV ONE (02:36)
[2017-02-22] MEDS: CeFAZolin 2 GM/DEXTROSE 50 ML IV SCH ×3 (02:47→18:15)
[2017-02-22] MEDS: ALBUTEROL SULFATE 2.5 MG/0.5 ML NEB SOLUTION NEB SCH ×6 (03:24→22:52)
[2017-02-22] MEDS: IPRATROPIUM BROMIDE 0.5 MG/2.5 ML NEB SOLUTION NEB SCH ×6 (03:24→22:52)
[2017-02-22] MEDS: ACETAMINOPHEN 650 MG/20.3 ML SOLUTION UDCUP NG PRN (04:18)
[2017-02-22] MEDS: LEVOTHYROXINE SODIUM 88 MCG TABLET PO SCH (05:55)
[2017-02-22 06:12] LABS: GLUCOSE,POINT OF CARE 126 MG/DL (70-110)
[2017-02-22 06:15] LABS: ANION GAP 4 mmol/L (8-16); CALCIUM, TOTAL 8.9 mg/dL (8.8-10.5); CARBON DIOXIDE 32 mmol/L (22-29); CHLORIDE 98 mmol/L (98-107); GLOMERULAR FILTR. RATE CALC > 60 mL/min (>60); POTASSIUM 4.7 mmol/L (3.5-5.1); SODIUM SERUM 134 mmol/L (136-145); UREA NITROGEN, BLOOD 24 mg/dL (7-18)
[2017-02-22] MEDS: VANCOMYCIN HCL 1.25 GM in DEXTROSE 5%-WATER 250 ML IV SCH (08:00)
[2017-02-22] MEDS: MethylPREDNISolone SOD SUCC 125 MG/2 ML VIAL IVP SCH (08:20)
[2017-02-22] MEDS: VALSARTAN 40 MG TABLET PO SCH (08:21)
[2017-02-22] MEDS: TAMSULOSIN HCL 0.4 MG CAPSULE PO SCH (08:21)
[2017-02-22] MEDS: PANTOPRAZOLE SODIUM 40 MG DR TABLET PO SCH (08:21)
[2017-02-22] MEDS: DOCUSATE SODIUM 100 MG CAPSULE PO SCH ×2 (08:21→20:12)
[2017-02-22] MEDS: FINASTERIDE 5 MG TABLET PO SCH (08:22)
[2017-02-22] MEDS: INSULIN REGULAR, HUMAN 100 UNITS/ML SQ PRN ×2 (12:06→20:37)
[2017-02-22] MEDS: PredniSONE 20 MG TABLET PO SCH (16:00)
[2017-02-22] MEDS: MONTELUKAST SODIUM 10 MG TABLET PO SCH (20:12)
[2017-02-22] MEDS: ACETAMINOPHEN 325 MG TABLET PO PRN (20:13)
[2017-02-22] MEDS: ZOLPIDEM TARTRATE 5 MG TABLET PO PRN (22:34)
[2017-02-23] VITALS (9 sets, daily range): BP systolic 126–151; BP diastolic 40–73
[2017-02-23] MEDS: ACETAMINOPHEN 325 MG TABLET PO PRN (00:25)
[2017-02-23] MEDS: ALBUMIN HUMAN 25%-12.5GM/50ML 50 ML IV SCH ×4 (01:06→18:29)
[2017-02-23] MEDS: CeFAZolin 2 GM/DEXTROSE 50 ML IV SCH ×3 (02:18→18:15)
[2017-02-23] MEDS: IPRATROPIUM BROMIDE 0.5 MG/2.5 ML NEB SOLUTION NEB SCH ×5 (02:57→19:23)
[2017-02-23] MEDS: ALBUTEROL SULFATE 2.5 MG/0.5 ML NEB SOLUTION NEB SCH ×5 (02:57→19:23)
[2017-02-23 06:13] LABS: ANION GAP 3 mmol/L (8-16); CALCIUM, TOTAL 9.2 mg/dL (8.8-10.5); CARBON DIOXIDE 33 mmol/L (22-29); CHLORIDE 98 mmol/L (98-107); CREATININE 0.87 mg/dL (0.60-1.30); GLOMERULAR FILTR. RATE CALC > 60 mL/min (>60); POTASSIUM 4.6 mmol/L (3.5-5.1); SODIUM SERUM 134 mmol/L (136-145); UREA NITROGEN, BLOOD 24 mg/dL (7-18)
[2017-02-23 06:37] LABS: GLUCOSE COMMENT 1 Received Meds; GLUCOSE,POINT OF CARE 151 MG/DL (70-110)
[2017-02-23 06:37] LABS: GLUCOSE COMMENT 1 Received Meds; GLUCOSE,POINT OF CARE 151 MG/DL (70-110)
[2017-02-23] MEDS: INSULIN REGULAR, HUMAN 100 UNITS/ML SQ PRN (06:46)
[2017-02-23] MEDS: LEVOTHYROXINE SODIUM 88 MCG TABLET PO SCH (06:47)
[2017-02-23] MEDS: DOCUSATE SODIUM 100 MG CAPSULE PO SCH ×2 (08:35→21:29)
[2017-02-23] MEDS: PredniSONE 20 MG TABLET PO SCH (08:35)
[2017-02-23] MEDS: VALSARTAN 40 MG TABLET PO SCH (08:35)
[2017-02-23] MEDS: PANTOPRAZOLE SODIUM 40 MG DR TABLET PO SCH (08:36)
[2017-02-23] MEDS: FINASTERIDE 5 MG TABLET PO SCH (08:36)
[2017-02-23] MEDS: TAMSULOSIN HCL 0.4 MG CAPSULE PO SCH (08:36)
[2017-02-23 10:06] LABS: GLUCOSE COMMENT 1 Received Meds; GLUCOSE,POINT OF CARE 151 MG/DL (70-110)
[2017-02-23] MEDS ORDERED: APIX5TAB PO ×2 (11:22→11:23)
[2017-02-23] MEDS: MONTELUKAST SODIUM 10 MG TABLET PO SCH (21:29)
[2017-02-23] MEDS: ZOLPIDEM TARTRATE 5 MG TABLET PO PRN (22:57)
[2017-02-24] MEDS: IPRATROPIUM BROMIDE 0.5 MG/2.5 ML NEB SOLUTION NEB SCH ×5 (00:11→16:39)
[2017-02-24] MEDS: ALBUTEROL SULFATE 2.5 MG/0.5 ML NEB SOLUTION NEB SCH ×5 (00:11→16:39)
[2017-02-24] MEDS ORDERED: SODIUM CHLORIDE 0.9% 250 ML IV ONE (00:38)
[2017-02-24] MEDS: ALBUMIN HUMAN 25%-12.5GM/50ML 50 ML IV SCH ×3 (01:17→12:13)
[2017-02-24] MEDS: CeFAZolin 2 GM/DEXTROSE 50 ML IV SCH ×2 (02:24→10:17)
[2017-02-24 05:10] VITALS: BP 146/53
[2017-02-24] MEDS: LEVOTHYROXINE SODIUM 88 MCG TABLET PO SCH (06:31)
[2017-02-24 07:20] VITALS: BP 144/79
[2017-02-24] MEDS: MULTIVITAMINS WITH MINERALS, THERAPEUTIC TABLET PO SCH ×2 (08:30→08:40)
[2017-02-24] MEDS: DOCUSATE SODIUM 100 MG CAPSULE PO SCH (08:40)
[2017-02-24] MEDS: PredniSONE 20 MG TABLET PO SCH (08:40)
[2017-02-24] MEDS: VALSARTAN 40 MG TABLET PO SCH (08:41)
[2017-02-24] MEDS: PANTOPRAZOLE SODIUM 40 MG DR TABLET PO SCH (08:41)
[2017-02-24] MEDS: TAMSULOSIN HCL 0.4 MG CAPSULE PO SCH (08:41)
[2017-02-24] MEDS: FINASTERIDE 5 MG TABLET PO SCH (08:41)
[2017-02-24 11:53] VITALS: BP 146/66
[2017-02-24] MEDS: ACETAMINOPHEN 325 MG TABLET PO PRN (12:12)
[2017-02-24 15:23] VITALS: BP 158/68
[2017-02-24] MEDS ORDERED: VALS40TA4 PO (16:13)
[2017-02-24] MEDS ORDERED: ACET-2902 PO (16:16)
== END 2017-02-24 17:40 | DRG 981 ==
LOC: EMS 19:23 → ICU 02-13 01:43 → ICUN 02-19 19:44 → 5N 02-23 20:30
PROVIDERS: ADMIT Internal Medicine Geriatric Medicine; ATTEND Internal Medicine Geriatric Medicine
PROC: 0BH17EZ Insertion of Endotracheal Airway into Trachea, Via Natural or Artificial Opening (ICD-10-PCS; 2017-02-13)
PROC: 5A1945Z Respiratory Ventilation, 24-96 Consecutive Hours (ICD-10-PCS; 2017-02-13)
PROC: 0DH67UZ Insertion of Feeding Device into Stomach, Via Natural or Artificial Opening (ICD-10-PCS; 2017-02-13)
PROC: 00163J6 Bypass Cerebral Ventricle to Peritoneal Cavity with Synthetic Substitute, Percutaneous Approach (ICD-10-PCS; principal; 2017-02-21 07:30)
DX: J96.02 Acute respiratory failure with hypercapnia (principal); G93.40 Encephalopathy, unspecified; J15.211 Pneumonia due to Methicillin susceptible Staphylococcus aureus; I50.31 Acute diastolic (congestive) heart failure; J44.0 Chronic obstructive pulmonary disease with (acute) lower respiratory infection; G91.2 (Idiopathic) normal pressure hydrocephalus; E44.0 Moderate protein-calorie malnutrition; J98.11 Atelectasis; R78.81 Bacteremia; J44.1 Chronic obstructive pulmonary disease with (acute) exacerbation; D64.9 Anemia, unspecified; E03.9 Hypothyroidism, unspecified; K21.9 Gastro-esophageal reflux disease without esophagitis; N40.0 Benign prostatic hyperplasia without lower urinary tract symptoms; I70.0 Atherosclerosis of aorta; Z53.29 Procedure and treatment not carried out because of patient's decision for other reasons; M19.90 Unspecified osteoarthritis, unspecified site; I11.0 Hypertensive heart disease with heart failure; L89.312 Pressure ulcer of right buttock, stage 2; I50.9 Heart failure, unspecified; I48.0 Paroxysmal atrial fibrillation; R26.9 Unspecified abnormalities of gait and mobility; I25.10 Atherosclerotic heart disease of native coronary artery without angina pectoris; E11.65 Type 2 diabetes mellitus with hyperglycemia; F03.90 Unspecified dementia, unspecified severity, without behavioral disturbance, psychotic disturbance, mood disturbance, and anxiety; B95.61 Methicillin susceptible Staphylococcus aureus infection as the cause of diseases classified elsewhere; Z88.8 Allergy status to other drugs, medicaments and biological substances; Z82.49 Family history of ischemic heart disease and other diseases of the circulatory system; Z68.29 Body mass index [BMI] 29.0-29.9, adult; Z90.49 Acquired absence of other specified parts of digestive tract; Z87.440 Personal history of urinary (tract) infections; Z79.899 Other long term (current) drug therapy
CPT/HCPCS: 51702; 70450; 72148; 82306; 82607; 82746; 82805; 82945; 82948; 82962; 83036; 83735; 84100; 84132; 84157; 84439; 84443; 86850; 86900; 86901; 87040; 87070; 87081; 87086; 87205; 89051; 93005; 93970; 94002; 94003; 94640; 96360; 96365; 96367; 96375; 97161; 97162; 97166; 97530; 97535; 99285; G0238; G0480; J0330; J0360; J0456; J0690; J0696; J1644; J1940; J2250; J2310; J2370; J2405; J2930; J3010; J3370; J3490; J7030; J7040; J7050; J7060; J7120; P9047

== ENCOUNTER 2017-03-22 10:39 | Emergency (ER) | payer MEDICARE, OTHER ==
[~2017-03-22] VITALS: Ht 182.9 cm; Wt 129.6 kg
[~2017-03-22 10:39] MED LIST changes: +ACET-2902 PO; -ACET-66 PO; -APIX2.5T PO; -DILT60SR PO; -PIPE3.377 IV; -VALS160T2 PO; +VALS40TA4 PO; -VANC1I IV
[2017-03-22 13:30] LABS: BASOPHILS # (AUTO) 0.02 K/uL (0.00-0.20); BASOPHILS % (AUTO) 0.2 % (0.0-2.0); EOSINOPHILS # (AUTO) 0.13 K/uL (0.00-0.70); EOSINOPHILS % (AUTO) 1.25 % (1.0-6.0); HEMATOCRIT 34.8 % (41-53); HEMOGLOBIN 10.8 g/dL (13.5-17.5); LYMPHOCYTES # (AUTO) 1.4 K/uL (1.0-4.8); LYMPHOCYTES % (AUTO) 13.8 % (22.0-44.0); MEAN CORPUSCULAR HEMOGLOBIN 28.2 pg (26.0-34.0); MEAN CORPUSCULAR HGB CONC 31.1 G/dL (31.0-37.0); MEAN CORPUSCULAR VOLUME 91 fL (80-100); MONOCYTES # (AUTO) 0.8 K/uL (0.1-1.0); MONOCYTES % (AUTO) 7.6 % (2.0-9.0); NEUTROPHILS # (AUTO) 7.9 K/uL (1.8-7.7); NEUTROPHILS % (AUTO) 77.3 % (40.0-70.0); PLATELET COUNT (AUTO) 229 K/uL (150-450); RED BLOOD CELL COUNT(AUTO) 3.83 MIL/uL (4.50-5.90); RED CELL DISTRIBUTION WIDTH 15.6 % (11.5-14.5); WHITE BLOOD COUNT (AUTO) 10.2 K/uL (4.5-11.0)
[2017-03-22 13:45] LABS: ANION GAP 6 mmol/L (8-16); CALCIUM, TOTAL 8.3 mg/dL (8.8-10.5); CARBON DIOXIDE 34 mmol/L (22-29); CHLORIDE 101 mmol/L (98-107); CREATININE 0.99 mg/dL (0.60-1.30); GLOMERULAR FILTR. RATE CALC > 60 mL/min (>60); POTASSIUM 3.1 mmol/L (3.5-5.1); SODIUM SERUM 141 mmol/L (136-145); UREA NITROGEN, BLOOD 18 mg/dL (7-18)
[2017-03-22 13:51] LABS: ALANINE AMINOTRANSFERASE 14 U/L (12-78); ALBUMIN 2.3 g/dL (3.4-5.0); ASPARTATE AMINOTRANSFERASE 19 U/L (15-37); BILIRUBIN,TOTAL 0.2 mg/dL (0.1-1.0)
[2017-03-22 13:54] LABS: INR 1.2 (0.9-1.1); PROTHROMBIN TIME 12.6 SEC (9.4-11.6)
[2017-03-22 13:58] LABS: B-TYPE NATRIURETIC PEPTIDE 35 pg/mL (0-100)
[2017-03-22 15:17] VITALS: BP 134/76
== END 2017-03-22 15:40 | disposition home or self-care (01) ==
LOC: EMS 10:41
DX: G91.9 Hydrocephalus, unspecified (principal); I62.03 Nontraumatic chronic subdural hemorrhage; D64.9 Anemia, unspecified; J44.9 Chronic obstructive pulmonary disease, unspecified; I12.9 Hypertensive chronic kidney disease with stage 1 through stage 4 chronic kidney disease, or unspecified chronic kidney disease; N18.9 Chronic kidney disease, unspecified; I48.91 Unspecified atrial fibrillation; E78.00 Pure hypercholesterolemia, unspecified; E03.9 Hypothyroidism, unspecified; Z88.8 Allergy status to other drugs, medicaments and biological substances
CPT/HCPCS: 70450; 71250; 93005; 99285

== ENCOUNTER 2017-03-30 09:54 | Inpatient (IN) | payer MEDICARE, OTHER ==
[~2017-03-30] VITALS: Ht 170.2 cm; Wt 81.3 kg
[2017-03-30] MEDS ORDERED: SUCCINYLCHOLINE CHLORIDE 20 MG/ML 10 ML VIAL IM ONE (10:00)
[2017-03-30] MEDS ORDERED: ETOMIDATE 2 MG/ML 10 ML VIAL IVP ONE ×2 (10:00→10:15)
[2017-03-30] MEDS ORDERED: SODIUM CHLORIDE 0.9% 1,000 ML IV ONE ×2 (10:15→13:45)
[2017-03-30] MEDS ORDERED: SUCCINYLCHOLINE CHLORIDE 20 MG/ML 10 ML VIAL IVP ONE (10:15)
[2017-03-30] MEDS ORDERED: RAPID SEQUENCE KIT [RSI] 1 EACH KIT ONE ×2 (10:19)
[2017-03-30] MEDS: PROPOFOL 1000 MG/ISO-OSM 100 ML IV PRN ×2 (10:25→16:11)
[2017-03-30 10:27] LABS: ABG A-A DIFF O2 135.8 mmHg (10-20.0); ABG BASE EXCESS 5.6 mmol/L (-2.0-3.0); ABG HCO3 28.5 mmol/L (22.0-26.0); ABG OXYHEMOGLOBIN 97.6 % (94.0-100.0); ABG PCO2 56 mmHg (35-45); ABG PH 7.362 (7.35-7.450); ALLEN TEST, BLOOD GAS Positive
[2017-03-30 10:45] LABS: APPEARANCE,URINE TURBID (CLEAR); GLUCOSE, URINE (UA) NEGATIVE (NEGATIVE); KETONES,URINE NEGATIVE (NEGATIVE); LEUKOCYTE ESTERASE ,URINE LARGE (NEGATIVE); OCCULT BLOOD,URINE MODERATE (NEGATIVE); PROTEIN,URINE POS 1+ (NEGATIVE)
[2017-03-30] MEDS ORDERED: SODIUM CHLORIDE 0.9% 250 ML IV ONE (10:45)
[2017-03-30 10:46] LABS: ADD UA MICROSCOPIC YES
[2017-03-30] MEDS ORDERED: PHENYLEPHRINE 200 MG/D5%-WATER 250 ML IV ONE (10:49)
[2017-03-30] MEDS: PHENYLEPHRINE 200 MG/D5%-WATER 250 ML IV PRN ×2 (10:51→11:45)
[2017-03-30 10:52] LABS: SQUAMOUS EPITHELIAL CELL,UR Few /LPF (None Seen); WBC,URINE >100 /HPF (0-5)
[2017-03-30 10:59] LABS: BASOPHILS % (AUTO) 0.1 % (0.0-2.0); EOSINOPHILS % (AUTO) 0.1 % (1.0-6.0); HEMATOCRIT 33.3 % (41-53); HEMOGLOBIN 10.1 g/dL (13.5-17.5); LYMPHOCYTES # (AUTO) 0.9 K/uL (1.0-4.8); LYMPHOCYTES % (AUTO) 5.7 % (22.0-44.0); MEAN CORPUSCULAR HEMOGLOBIN 27.4 pg (26.0-34.0); MEAN CORPUSCULAR HGB CONC 30.3 G/dL (31.0-37.0); MEAN CORPUSCULAR VOLUME 91 fL (80-100); MONOCYTES # (AUTO) 0.6 K/uL (0.1-1.0); MONOCYTES % (AUTO) 3.7 % (2.0-9.0); NEUTROPHILS # (AUTO) 14.4 K/uL (1.8-7.7); PLATELET COUNT (AUTO) 245 K/uL (150-450); RED BLOOD CELL COUNT(AUTO) 3.67 MIL/uL (4.50-5.90); RED CELL DISTRIBUTION WIDTH 16.9 % (11.5-14.5); WHITE BLOOD COUNT (AUTO) 15.9 K/uL (4.5-11.0)
[2017-03-30 11:01] LABS: NEUTROPHILS % (AUTO) 90.4 % (40.0-70.0)
[2017-03-30 11:08] LABS: AMMONIA 65 umol/L (11-32)
[2017-03-30 11:09] LABS: ANION GAP 3 mmol/L (8-16); CALCIUM, TOTAL 8.2 mg/dL (8.8-10.5); CARBON DIOXIDE 33 mmol/L (22-29); CHLORIDE 106 mmol/L (98-107); CREATININE 1.08 mg/dL (0.60-1.30); GLOMERULAR FILTR. RATE CALC > 60 mL/min (>60); POTASSIUM 4.7 mmol/L (3.5-5.1); SODIUM SERUM 142 mmol/L (136-145); UREA NITROGEN, BLOOD 14 mg/dL (7-18)
[2017-03-30 11:12] LABS: TROPONIN I < 0.02 ng/mL (0.00-0.05)
[2017-03-30 11:13] LABS: INR 1.1 (0.9-1.1); PROTHROMBIN TIME 11.9 SEC (9.4-11.6)
[2017-03-30 11:15] LABS: ALANINE AMINOTRANSFERASE 11 U/L (12-78); ALBUMIN 2.1 g/dL (3.4-5.0); ASPARTATE AMINOTRANSFERASE 16 U/L (15-37); BILIRUBIN,TOTAL 0.4 mg/dL (0.1-1.0); CREATINE KINASE, TOTAL 17 U/L (39-308); TOTAL PROTEIN, SERUM 5.8 g/dL (6.4-8.2)
[2017-03-30 11:17] LABS: LACTIC ACID 0.8 mmol/L (0.4-2.0)
[2017-03-30 11:21] LABS: B-TYPE NATRIURETIC PEPTIDE 259 pg/mL (0-100)
[2017-03-30] MEDS ORDERED: DOPamine HCL 400 MG/D5%-WATER 250 ML IV PRN (11:23)
[2017-03-30] MEDS ORDERED: DOPamine HCL 400 MG/D5%-WATER 250 ML IV ONE (11:28)
[2017-03-30] MEDS ORDERED: CefTRIAXone SODIUM 2 GM in DEXTROSE 5%-WATER 50 ML IV ONE (11:30)
[2017-03-30] MEDS ORDERED: SODIUM CHLORIDE 0.9% 500 ML IV ONE (13:45)
[2017-03-30] MEDS ORDERED: 0.9% SODIUM CHLORIDE 10 ML SYRINGE IVP PRN (13:45)
[2017-03-30] MEDS ORDERED: IPRATROPIUM BROMIDE 0.5 MG/2.5 ML NEB SOLUTION NEB ONE (14:00)
[2017-03-30] MEDS ORDERED: CefTRIAXone 1 GM/DEXTROSE 50 ML IV ONE (14:00)
[2017-03-30] MEDS ORDERED: ALBUTEROL SULFATE 5 MG/ML 20 ML NEB SOLN [BULK] NEB ONE (14:00)
[2017-03-30] MEDS: IPRATROPIUM BROMIDE 0.5 MG/2.5 ML NEB SOLUTION NEB SCH ×2 (14:11→18:41)
[2017-03-30] MEDS: ALBUTEROL SULFATE 2.5 MG/0.5 ML NEB SOLUTION NEB SCH ×2 (14:11→18:41)
[2017-03-30 14:29] LABS: ABG A-A DIFF O2 118.3 mmHg (10-20.0); ABG BASE EXCESS 3.3 mmol/L (-2.0-3.0); ABG HCO3 27.6 mmol/L (22.0-26.0); ABG OXYHEMOGLOBIN 97.2 % (94.0-100.0); ABG PCO2 35 mmHg (35-45); ABG PH 7.499 (7.35-7.450); ALLEN TEST, BLOOD GAS Positive; TEMPERATURE, FAHRENHEIT, BG 98.8 FAHREN (96.0-98.6)
[2017-03-30 20:00] VITALS: BP 129/43
[2017-03-31] VITALS: BP 153/45
[2017-03-31] MEDS: IPRATROPIUM BROMIDE 0.5 MG/2.5 ML NEB SOLUTION NEB SCH ×2 (00:12→03:27)
[2017-03-31] MEDS: ALBUTEROL SULFATE 2.5 MG/0.5 ML NEB SOLUTION NEB SCH ×2 (00:13→03:27)
[2017-03-31] MEDS ORDERED: DOPamine HCL 400 MG/D5%-WATER 250 ML IV PRN (01:18)
[2017-03-31 04:00] VITALS: BP 140/39
[2017-03-31 06:03] LABS: ALANINE AMINOTRANSFERASE 11 U/L (12-78); ALBUMIN 2.1 g/dL (3.4-5.0); ANION GAP 6 mmol/L (8-16); ASPARTATE AMINOTRANSFERASE 14 U/L (15-37); BILIRUBIN,TOTAL 0.3 mg/dL (0.1-1.0); CALCIUM, TOTAL 8.2 mg/dL (8.8-10.5); CARBON DIOXIDE 30 mmol/L (22-29); CHLORIDE 108 mmol/L (98-107); CREATININE 0.98 mg/dL (0.60-1.30); GLOMERULAR FILTR. RATE CALC > 60 mL/min (>60); POTASSIUM 3.5 mmol/L (3.5-5.1); SODIUM SERUM 144 mmol/L (136-145); TOTAL PROTEIN, SERUM 5.9 g/dL (6.4-8.2); UREA NITROGEN, BLOOD 13 mg/dL (7-18)
[2017-03-31 07:00] LABS: BASOPHILS % (AUTO) 0.3 % (0.0-2.0); EOSINOPHILS % (AUTO) 0.3 % (1.0-6.0); HEMATOCRIT 34.1 % (41-53); HEMOGLOBIN 10.5 g/dL (13.5-17.5); LYMPHOCYTES # (AUTO) 1.8 K/uL (1.0-4.8); LYMPHOCYTES % (AUTO) 10.5 % (22.0-44.0); MEAN CORPUSCULAR HEMOGLOBIN 27.4 pg (26.0-34.0); MEAN CORPUSCULAR HGB CONC 30.8 G/dL (31.0-37.0); MEAN CORPUSCULAR VOLUME 89 fL (80-100); MONOCYTES # (AUTO) 1.5 K/uL (0.1-1.0); MONOCYTES % (AUTO) 9.1 % (2.0-9.0); NEUTROPHILS # (AUTO) 13.3 K/uL (1.8-7.7); NEUTROPHILS % (AUTO) 79.8 % (40.0-70.0); PLATELET COUNT (AUTO) 224 K/uL (150-450); RED BLOOD CELL COUNT(AUTO) 3.83 MIL/uL (4.50-5.90); RED CELL DISTRIBUTION WIDTH 16.6 % (11.5-14.5); WHITE BLOOD COUNT (AUTO) 16.7 K/uL (4.5-11.0)
[2017-03-31] MEDS ORDERED: MAGNESIUM HYDROXIDE SUSPENSION 30 ML UDCUP PO PRN (07:15)
[2017-03-31] MEDS ORDERED: 0.9% SODIUM CHLORIDE 10 ML SYRINGE IVP PRN (07:15)
[2017-03-31] MEDS ORDERED: VANCOMYCIN HCL 1.5 GM in DEXTROSE 5%-WATER 250 ML IV ONE (07:30)
[2017-03-31 08:00] VITALS: BP_SYST 120; BP_DIAS 46; BP_DIAS 60
[2017-03-31] MEDS: DOCUSATE SODIUM 100 MG CAPSULE PO SCH ×2 (09:47→20:09)
[2017-03-31] MEDS: PANTOPRAZOLE SODIUM 40 MG/VIAL IVP SCH (09:47)
[2017-03-31] MEDS: PIPERACILLIN/TAZO 3.375 GM/D5W 50 ML IV SCH ×3 (09:49→22:21)
[2017-03-31 12:00] VITALS: BP_SYST 120; BP_SYST 94; BP_DIAS 46; BP_DIAS 60
[2017-03-31] MEDS: ALBUMIN HUMAN 25%-25GM/100ML 100 ML IV SCH ×2 (12:36→20:09)
[2017-03-31 16:00] VITALS: BP_SYST 132; BP_SYST 94; BP_DIAS 43; BP_DIAS 64
[2017-03-31] MEDS: PROPOFOL 1000 MG/ISO-OSM 100 ML IV PRN (16:34)
[2017-03-31 20:00] VITALS: BP 89/49
[2017-03-31] MEDS ORDERED: VANCOMYCIN HCL 1 GM/D5% WATER 200 ML IV SCH (20:00)
[2017-03-31] MEDS ORDERED: SODIUM CHLORIDE 0.9% 250 ML IV ONE (22:21)
[2017-04-01] VITALS: BP 125/49
[2017-04-01] MEDS ORDERED: FUROSEMIDE 40 MG/4 ML VIAL IVP ONE (00:15)
[2017-04-01 04:00] VITALS: BP 145/51
[2017-04-01] MEDS: PIPERACILLIN/TAZO 3.375 GM/D5W 50 ML IV SCH ×4 (04:40→22:55)
[2017-04-01] MEDS: ALBUMIN HUMAN 25%-25GM/100ML 100 ML IV SCH ×3 (04:40→20:29)
[2017-04-01 05:45] LABS: CALCIUM, TOTAL 8.2 mg/dL (8.8-10.5); CREATININE 1.27 mg/dL (0.60-1.30); POTASSIUM 3.1 mmol/L (3.5-5.1)
[2017-04-01 06:01] LABS: BASOPHILS # (AUTO) 0.04 K/uL (0.00-0.20); BASOPHILS % (AUTO) 0.3 % (0.0-2.0); EOSINOPHILS # (AUTO) 0.09 K/uL (0.00-0.70); EOSINOPHILS % (AUTO) 0.67 % (1.0-6.0); HEMOGLOBIN 8.6 g/dL (13.5-17.5); LYMPHOCYTES # (AUTO) 1.7 K/uL (1.0-4.8); LYMPHOCYTES % (AUTO) 12.9 % (22.0-44.0); MEAN CORPUSCULAR HEMOGLOBIN 28.4 pg (26.0-34.0); MEAN CORPUSCULAR HGB CONC 31.8 G/dL (31.0-37.0); MEAN CORPUSCULAR VOLUME 89 fL (80-100); MONOCYTES # (AUTO) 1.1 K/uL (0.1-1.0); MONOCYTES % (AUTO) 8.6 % (2.0-9.0); NEUTROPHILS % (AUTO) 77.6 % (40.0-70.0); PLATELET COUNT (AUTO) 168 K/uL (150-450); RED BLOOD CELL COUNT(AUTO) 3.02 MIL/uL (4.50-5.90); RED CELL DISTRIBUTION WIDTH 16.6 % (11.5-14.5); WHITE BLOOD COUNT (AUTO) 12.9 K/uL (4.5-11.0)
[2017-04-01] MEDS ORDERED: POTASSIUM CHLORIDE 10% 40 MEQ/30 ML LIQUID UDCUP NG ONE (06:30)
[2017-04-01 08:00] VITALS: BP 141/57
[2017-04-01] MEDS: PANTOPRAZOLE SODIUM 40 MG/VIAL IVP SCH (08:55)
[2017-04-01] MEDS: DOCUSATE SODIUM 100 MG CAPSULE PO SCH ×2 (08:55→21:00)
[2017-04-01] MEDS: VANCOMYCIN HCL 1.25 GM in DEXTROSE 5%-WATER 250 ML IV SCH (08:55)
[2017-04-01 09:15] LABS: ABG A-A DIFF O2 61.6 mmHg (10-20.0); ABG BASE EXCESS 5.7 mmol/L (-2.0-3.0); ABG HCO3 29.5 mmol/L (22.0-26.0); ABG OXYHEMOGLOBIN 97.8 % (94.0-100.0); ABG PCO2 33 mmHg (35-45); ABG PH 7.544 (7.35-7.450); TEMPERATURE, FAHRENHEIT, BG 98.6 FAHREN (96.0-98.6)
[2017-04-01 09:16] LABS: ALLEN TEST, BLOOD GAS Positive
[2017-04-01] MEDS: PROPOFOL 1000 MG/ISO-OSM 100 ML IV PRN ×2 (11:57→23:09)
[2017-04-01 12:00] VITALS: BP 146/49
[2017-04-01 16:00] VITALS: BP 153/54
[2017-04-02] VITALS: BP 146/56
[2017-04-02] MEDS ORDERED: SODIUM CHLORIDE 0.9% 250 ML IV ONE (00:10)
[2017-04-02 04:00] VITALS: BP 160/59
[2017-04-02] MEDS: PIPERACILLIN/TAZO 3.375 GM/D5W 50 ML IV SCH ×4 (04:57→22:28)
[2017-04-02] MEDS: ALBUMIN HUMAN 25%-25GM/100ML 100 ML IV SCH ×3 (04:57→20:32)
[2017-04-02 06:27] LABS: ANION GAP 8 mmol/L (8-16); CALCIUM, TOTAL 8.6 mg/dL (8.8-10.5); CARBON DIOXIDE 28 mmol/L (22-29); CHLORIDE 104 mmol/L (98-107); CREATININE 1.07 mg/dL (0.60-1.30); GLOMERULAR FILTR. RATE CALC > 60 mL/min (>60); SODIUM SERUM 140 mmol/L (136-145); UREA NITROGEN, BLOOD 14 mg/dL (7-18)
[2017-04-02 07:53] LABS: BASOPHILS % (AUTO) 0.3 % (0.0-2.0); EOSINOPHILS % (AUTO) 3.8 % (1.0-6.0); HEMATOCRIT 27.2 % (41-53); HEMOGLOBIN 8.5 g/dL (13.5-17.5); LYMPHOCYTES # (AUTO) 1.3 K/uL (1.0-4.8); LYMPHOCYTES % (AUTO) 13.3 % (22.0-44.0); MEAN CORPUSCULAR HEMOGLOBIN 27.7 pg (26.0-34.0); MEAN CORPUSCULAR HGB CONC 31.4 G/dL (31.0-37.0); MEAN CORPUSCULAR VOLUME 88 fL (80-100); MONOCYTES # (AUTO) 0.3 K/uL (0.1-1.0); MONOCYTES % (AUTO) 3.3 % (2.0-9.0); NEUTROPHILS # (AUTO) 7.9 K/uL (1.8-7.7); NEUTROPHILS % (AUTO) 79.3 % (40.0-70.0); PLATELET COUNT (AUTO) 142 K/uL (150-450); RED BLOOD CELL COUNT(AUTO) 3.08 MIL/uL (4.50-5.90); RED CELL DISTRIBUTION WIDTH 16.9 % (11.5-14.5); WHITE BLOOD COUNT (AUTO) 9.9 K/uL (4.5-11.0)
[2017-04-02 08:00] VITALS: BP 134/68
[2017-04-02] MEDS: PANTOPRAZOLE SODIUM 40 MG/VIAL IVP SCH (08:13)
[2017-04-02] MEDS: VANCOMYCIN HCL 1.25 GM in DEXTROSE 5%-WATER 250 ML IV SCH (08:13)
[2017-04-02] MEDS: DOCUSATE SODIUM 100 MG CAPSULE PO SCH ×2 (08:14→21:00)
[2017-04-02] MEDS: ACETAMINOPHEN 325 MG TABLET PO PRN (09:37)
[2017-04-02 10:26] LABS: ABG A-A DIFF O2 56.7 mmHg (10-20.0); ABG BASE EXCESS 3.5 mmol/L (-2.0-3.0); ABG HCO3 27.6 mmol/L (22.0-26.0); ABG OXYHEMOGLOBIN 97.6 % (94.0-100.0); ABG PCO2 33 mmHg (35-45); ABG PH 7.517 (7.35-7.450); TEMPERATURE, FAHRENHEIT, BG 98.2 FAHREN (96.0-98.6)
[2017-04-02 10:27] LABS: ALLEN TEST, BLOOD GAS Positive
[2017-04-02] MEDS ORDERED: POTASSIUM CHLORIDE 10% 40 MEQ/30 ML LIQUID UDCUP NG ONE (10:30)
[2017-04-02 12:00] VITALS: BP 157/63
[2017-04-02 12:44] LABS: ABG A-A DIFF O2 79.7 mmHg (10-20.0); ABG BASE EXCESS 0.4 mmol/L (-2.0-3.0); ABG OXYHEMOGLOBIN 96.6 % (94.0-100.0); ABG PCO2 34 mmHg (35-45); ABG PH 7.471 (7.35-7.450); ALLEN TEST, BLOOD GAS Positive; TEMPERATURE, FAHRENHEIT, BG 98.1 FAHREN (96.0-98.6)
[2017-04-02] MEDS ORDERED: POTASSIUM CHLORIDE 20 MEQ ER TABLET PO PRN (13:45)
[2017-04-02 16:00] VITALS: BP 127/51
[2017-04-02] MEDS: POTASSIUM CHL 10 MEQ/WATER 50 ML IV PRN ×3 (18:34→21:06)
[2017-04-02] MEDS: MUPIROCIN CALCIUM 2% 22 GM OINTMENT NASAL SCH (20:46)
[2017-04-02] MEDS: PROPOFOL 1000 MG/ISO-OSM 100 ML IV PRN (20:48)
[2017-04-02] MEDS ORDERED: SODIUM CHLORIDE 0.9% 100 ML ONE (21:23)
[2017-04-02] MEDS ORDERED: IOVERSOL 350 MG/ML 150 ML VIAL ONE (21:24)
[2017-04-02] MEDS ORDERED: BARIUM SULFATE 0.1% SUSPENSION 450 ML BOTTLE ONE (21:24)
[2017-04-03] VITALS (7 sets, daily range): BP systolic 135–182; BP diastolic 59–82
[2017-04-03] MEDS: PIPERACILLIN/TAZO 3.375 GM/D5W 50 ML IV SCH ×4 (04:04→21:35)
[2017-04-03] MEDS: ALBUMIN HUMAN 25%-25GM/100ML 100 ML IV SCH ×3 (04:04→19:56)
[2017-04-03] MEDS: PROPOFOL 1000 MG/ISO-OSM 100 ML IV PRN (04:04)
[2017-04-03] MEDS ORDERED: SODIUM CHLORIDE 0.9% 250 ML IV ONE (04:09)
[2017-04-03 05:54] LABS: ANION GAP 11 mmol/L (8-16); CALCIUM, TOTAL 8.8 mg/dL (8.8-10.5); CARBON DIOXIDE 26 mmol/L (22-29); CHLORIDE 101 mmol/L (98-107); GLOMERULAR FILTR. RATE CALC > 60 mL/min (>60); POTASSIUM 3.5 mmol/L (3.5-5.1); SODIUM SERUM 138 mmol/L (136-145); UREA NITROGEN, BLOOD 10 mg/dL (7-18)
[2017-04-03 07:16] LABS: ABG A-A DIFF O2 50.5 mmHg (10-20.0); ABG BASE EXCESS -0.5 mmol/L (-2.0-3.0); ABG HCO3 24.5 mmol/L (22.0-26.0); ABG OXYHEMOGLOBIN 98.6 % (94.0-100.0); ABG PCO2 29 mmHg (35-45); ABG PH 7.507 (7.35-7.450); ALLEN TEST, BLOOD GAS Positive; TEMPERATURE, FAHRENHEIT, BG 98.6 FAHREN (96.0-98.6)
[2017-04-03] MEDS: DOCUSATE SODIUM 100 MG CAPSULE PO SCH ×2 (08:44→21:00)
[2017-04-03] MEDS: PANTOPRAZOLE SODIUM 40 MG/VIAL IVP SCH (08:44)
[2017-04-03] MEDS: MUPIROCIN CALCIUM 2% 22 GM OINTMENT NASAL SCH ×2 (08:44→21:18)
[2017-04-03 09:37] LABS: ABG A-A DIFF O2 60.6 mmHg (10-20.0); ABG HCO3 23.9 mmol/L (22.0-26.0); ABG OXYHEMOGLOBIN 97.5 % (94.0-100.0); ABG PCO2 34 mmHg (35-45); ABG PH 7.444 (7.35-7.450); TEMPERATURE, FAHRENHEIT, BG 98.6 FAHREN (96.0-98.6)
[2017-04-03 09:38] LABS: ALLEN TEST, BLOOD GAS Positive
[2017-04-03 11:33] LABS: ABG A-A DIFF O2 44.5 mmHg (10-20.0); ABG BASE EXCESS -1.2 mmol/L (-2.0-3.0); ABG HCO3 23.6 mmol/L (22.0-26.0); ABG OXYHEMOGLOBIN 97.5 % (94.0-100.0); ABG PCO2 38 mmHg (35-45); ABG PH 7.407 (7.35-7.450); TEMPERATURE, FAHRENHEIT, BG 98.6 FAHREN (96.0-98.6)
[2017-04-03 11:34] LABS: ALLEN TEST, BLOOD GAS Positive
[2017-04-03] MEDS: NITROGLYCERIN 2% (1 GM=INCH) PACKET TP SCH ×2 (16:22→23:42)
[2017-04-03] MEDS: ACETAMINOPHEN 325 MG TABLET PO PRN (19:23)
[2017-04-03] MEDS ORDERED: ZOLPIDEM TARTRATE 5 MG TABLET PO PRN (21:30)
[2017-04-04] VITALS: BP 130/66
[2017-04-04 04:00] VITALS: BP 129/65
[2017-04-04] MEDS: PIPERACILLIN/TAZO 3.375 GM/D5W 50 ML IV SCH ×4 (04:07→21:17)
[2017-04-04] MEDS: ALBUMIN HUMAN 25%-25GM/100ML 100 ML IV SCH ×2 (04:07→11:48)
[2017-04-04] MEDS ORDERED: SODIUM CHLORIDE 0.9% 250 ML IV ONE ×2 (05:19→16:36)
[2017-04-04 05:45] LABS: ANION GAP 8 mmol/L (8-16); CARBON DIOXIDE 29 mmol/L (22-29); CHLORIDE 103 mmol/L (98-107); CREATININE 1.05 mg/dL (0.60-1.30); GLOMERULAR FILTR. RATE CALC > 60 mL/min (>60); POTASSIUM 3.7 mmol/L (3.5-5.1); SODIUM SERUM 140 mmol/L (136-145); UREA NITROGEN, BLOOD 10 mg/dL (7-18)
[2017-04-04 08:00] VITALS: BP 162/62
[2017-04-04] MEDS: DOCUSATE SODIUM 100 MG CAPSULE PO SCH ×2 (09:00→21:00)
[2017-04-04] MEDS: PANTOPRAZOLE SODIUM 40 MG/VIAL IVP SCH (09:00)
[2017-04-04] MEDS: NITROGLYCERIN 2% (1 GM=INCH) PACKET TP SCH ×2 (09:00→16:50)
[2017-04-04] MEDS: MUPIROCIN CALCIUM 2% 22 GM OINTMENT NASAL SCH ×2 (09:00→21:18)
[2017-04-04 12:00] VITALS: BP 154/66
[2017-04-04 16:32] VITALS: BP 146/66
[2017-04-04 19:46] VITALS: BP 131/59
[2017-04-05 00:21] VITALS: BP 169/80
[2017-04-05] MEDS: NITROGLYCERIN 2% (1 GM=INCH) PACKET TP SCH ×3 (01:10→15:40)
[2017-04-05] MEDS: PIPERACILLIN/TAZO 3.375 GM/D5W 50 ML IV SCH ×3 (04:15→15:43)
[2017-04-05 05:01] VITALS: BP 141/76
[2017-04-05 06:33] LABS: ANION GAP 7 mmol/L (8-16); CALCIUM, TOTAL 8.9 mg/dL (8.8-10.5); CARBON DIOXIDE 30 mmol/L (22-29); CHLORIDE 104 mmol/L (98-107); CREATININE 1.04 mg/dL (0.60-1.30); GLOMERULAR FILTR. RATE CALC > 60 mL/min (>60); POTASSIUM 3.9 mmol/L (3.5-5.1); SODIUM SERUM 141 mmol/L (136-145); UREA NITROGEN, BLOOD 11 mg/dL (7-18)
[2017-04-05 07:23] VITALS: BP 144/76
[2017-04-05] MEDS: PANTOPRAZOLE SODIUM 40 MG/VIAL IVP SCH (08:58)
[2017-04-05] MEDS: DOCUSATE SODIUM 100 MG CAPSULE PO SCH (08:58)
[2017-04-05] MEDS: MUPIROCIN CALCIUM 2% 22 GM OINTMENT NASAL SCH (08:59)
[2017-04-05] MEDS ORDERED: MAGNESIUM HYDROXIDE SUSPENSION 30 ML UDCUP PO PRN (09:15)
[2017-04-05] MEDS ORDERED: BISACODYL 5 MG EC TABLET PO PRN (09:15)
[2017-04-05] MEDS ORDERED: DEXTROSE 50%-WATER 25 GM/50 ML SYRINGE IVP PRN (09:30)
[2017-04-05] MEDS ORDERED: FUROSEMIDE 20 MG/2 ML VIAL IVP SCH (09:30)
[2017-04-05] MEDS ORDERED: INSULIN ASPART 100 UNITS/ML SQ PRN (09:30)
[2017-04-05 11:11] VITALS: BP 132/69
[2017-04-05 14:36] LABS: GLUCOSE,POINT OF CARE 92 MG/DL (70-110)
[2017-04-05 15:03] VITALS: BP 134/78
[2017-04-05] MEDS ORDERED: MUPI15CR NASAL (16:54)
[2017-04-05] MEDS ORDERED: MUPI1OIN5 NASAL (16:56)
[2017-04-05] MEDS ORDERED: LEVO500 PO (16:57)
[2017-04-05] MEDS ORDERED: MONTELUKAST SODIUM 10 MG TABLET PO SCH (21:00)
[2017-04-05] MEDS ORDERED: DOCUSATE SODIUM 100 MG CAPSULE PO SCH (21:00)
[2017-04-06] MEDS ORDERED: LEVOTHYROXINE SODIUM 88 MCG TABLET PO SCH (06:30)
[2017-04-06] MEDS ORDERED: SENNA 187 MG TABLET PO SCH (09:00)
[2017-04-06] MEDS ORDERED: TAMSULOSIN HCL 0.4 MG CAPSULE PO SCH (09:00)
[2017-04-06] MEDS ORDERED: FUROSEMIDE 20 MG TABLET PO SCH (09:00)
[2017-04-06] MEDS ORDERED: FINASTERIDE 5 MG TABLET PO SCH (09:00)
[2017-04-06] MEDS ORDERED: FUROSEMIDE 20 MG/2 ML VIAL IVP SCH (09:00)
== END 2017-04-05 18:15 | DRG 870 ==
LOC: EMS 09:57 → ICUN 17:49 → ICU 03-31 14:52 → 5N 04-04 16:00
PROVIDERS: ADMIT Internal Medicine Geriatric Medicine; ATTEND Internal Medicine Geriatric Medicine
PROC: 5A1955Z Respiratory Ventilation, Greater than 96 Consecutive Hours (ICD-10-PCS; principal; 2017-03-30)
PROC: 0BH17EZ Insertion of Endotracheal Airway into Trachea, Via Natural or Artificial Opening (ICD-10-PCS; 2017-03-30)
PROC: 06HM33Z Insertion of Infusion Device into Right Femoral Vein, Percutaneous Approach (ICD-10-PCS; 2017-03-30)
PROC: B54BZZA Ultrasonography of Right Lower Extremity Veins, Guidance (ICD-10-PCS; 2017-03-30)
DX: A41.9 Sepsis, unspecified organism (principal); G93.41 Metabolic encephalopathy; E43 Unspecified severe protein-calorie malnutrition; J96.01 Acute respiratory failure with hypoxia; J18.9 Pneumonia, unspecified organism; R65.21 Severe sepsis with septic shock; I62.03 Nontraumatic chronic subdural hemorrhage; I50.32 Chronic diastolic (congestive) heart failure; N39.0 Urinary tract infection, site not specified; G91.2 (Idiopathic) normal pressure hydrocephalus; J44.0 Chronic obstructive pulmonary disease with (acute) lower respiratory infection; I48.91 Unspecified atrial fibrillation; E78.00 Pure hypercholesterolemia, unspecified; E03.9 Hypothyroidism, unspecified; M19.90 Unspecified osteoarthritis, unspecified site; N40.0 Benign prostatic hyperplasia without lower urinary tract symptoms; I11.0 Hypertensive heart disease with heart failure; G93.89 Other specified disorders of brain; Z96.651 Presence of right artificial knee joint; D64.9 Anemia, unspecified; B96.5 Pseudomonas (aeruginosa) (mallei) (pseudomallei) as the cause of diseases classified elsewhere; K21.9 Gastro-esophageal reflux disease without esophagitis; B96.89 Other specified bacterial agents as the cause of diseases classified elsewhere; B96.4 Proteus (mirabilis) (morganii) as the cause of diseases classified elsewhere; I49.5 Sick sinus syndrome; B95.61 Methicillin susceptible Staphylococcus aureus infection as the cause of diseases classified elsewhere; E87.6 Hypokalemia; F03.90 Unspecified dementia, unspecified severity, without behavioral disturbance, psychotic disturbance, mood disturbance, and anxiety; D69.6 Thrombocytopenia, unspecified; B95.62 Methicillin resistant Staphylococcus aureus infection as the cause of diseases classified elsewhere; G47.00 Insomnia, unspecified; Z87.01 Personal history of pneumonia (recurrent); Z90.49 Acquired absence of other specified parts of digestive tract; Z79.899 Other long term (current) drug therapy; Z79.4 Long term (current) use of insulin; Z68.28 Body mass index [BMI] 28.0-28.9, adult; Z88.5 Allergy status to narcotic agent; Z98.2 Presence of cerebrospinal fluid drainage device; Z87.440 Personal history of urinary (tract) infections; Z78.1 Physical restraint status
CPT/HCPCS: 31500; 36556; 51702; 70450; 74177; 82805; 82962; 83605; 83735; 84132; 84145; 84443; 87040; 87070; 87081; 87086; 87205; 92526; 92610; 93005; 94002; 94003; 94640; 96361; 96365; 96366; 96368; 96375; 99291; C9113; J0330; J0696; J1265; J1940; J2370; J2543; J2704; J3370; J3480; J3490; J7030; J7040; J7050; J7060; P9046